=== PATIENT | female | born 1975 | race Caucasian/White ===

== ENCOUNTER 2021-10-16 14:33 | Emergency (ER) | payer OTHER, SELFPAY ==
--- NOTE | ~2021-10-16 | CT_ITS ---
EXAMINATION: CT brain wo con EXAM DATE: 10/16/2021 15:31 INDICATION: Worsening headache, vomiting. History of migraine headaches with photophobia. TECHNIQUE: Spiral CT of the head was performed without contrast. Axial, coronal and sagittal images were reviewed. The dose-length product (DLP) for this examination was 605.33 mGy-cm. The exposure w as tailored according to patient size, and iterative reconstruction (ASIR) was used as additional dos e reduction technique. There is no prior study for comparison. FINDINGS: There is no acute intraparenchymal hemorrhage. No evidence of intraparenchymal brain mass lesion. No evidence of acute infarction. There is no mass effect or midline shift. The ventricles are normal in size. There are no extra-axial collections. There are no acute calvarial fractures. T he orbits are unremarkable. Soft tissue is unremarkable. The visualized sinuses and mastoid air sathish ls are well aerated. IMPRESSION: 1. Unremarkable head CT examination. Reviewed, dictated and finalized at location [facility]. [facility]
[2021-10-16 14:39] VITALS: BP 127/84; PULSE 90; RESP 16; TEMP 35.5; O2SAT 100
--- NOTE | 2021-10-16 15:10 | ED.HA ---
HPI - Headache General Chief Complaint: Headache Stated Complaint: migraine [place] Time Seen by Provider: 10/16/21 14:59 Source: patient Mode of arrival: ambulatory Limitations: no limitations History of Present Illness HPI Narrative: This is a 46 year old female that presents to the ER for headache present since this morning. No injuries or trauma. Reports a pounding headache, associated with photophobia, nausea and vomiting. Does report history of migraines and took her rescue medication without relief. She sees a neurologist at the [facility] for her [facility]raines. She also reports she was having left sided flank pain last night that has somewhat resolved. Reports history of kidney stones. Denies fever, dysuria or hematuria. Related Data Allergies Allergy/AdvReac Type Severity Reaction Status Date / Time morphine AdvReac Hives Verified 10/16/21 16:05 Penicillins AdvReac Stopped Verified 10/16/21 16:05 Breathing Review of Systems Review of Systems: CONSTITUTIONAL: Denies fever EYES: Reports blurry vision GASTROINTESTINAL: Reports nausea, vomiting GENITOURINARY: Denies dysuria or hematuria. NEUROLOGIC: Reports headache. Denies numbness, or weakness. All systems reviewed & are unremarkable except as noted in HPI and below PMFSH Past Medical History Medical History (Updated 10/16/21 @ 17:27 by Kailey Cohen PA-C) History of migraine History of posttraumatic stress disorder (PTSD) Social History Social History (Updated 10/16/21 @ 15:14 by Kailey Cohen PA-C) Substance use: current Substance use type: marijuana Gender identity (if verbalized by the patient): Female Exam Narrative: GENERAL: Well-appearing, well-nourished, and in mild acute distress due to pain. HEAD: Normocephalic, atraumatic. EYES: PERRLA and EOMI. ENT: Nares clear, no rhinorrhea or epistaxis. Mucous membranes moist. Oropharynx without tonsillar hypertrophy exudate or other lesions. Bilateral TMs pearly reese non-bulging NECK: Supple. No adenopathy or masses. CHEST: Clear to auscultation. No respiratory distress. No wheezes rales or rhonchi HEART: Regular rate and rhythm. No murmur heard. Normal peripheral pulses. ABDOMEN: Soft, nontender, nondistended, normal active bowel sounds. No CVA tenderness EXTREMITIES: Normal range of motion. No edema. Strength equal in bilateral upper and lower extremities (5/5) SKIN: Warm, dry, no rash. NEURO: No focal deficits. Alert and oriented x3. CN II-XII grossly intact PSYCH: Normal mood and affect Course Vital Signs Vital signs: Vital Signs Temperature 96 F L 10/16/21 14:39 Pulse Rate 90 10/16/21 14:39 Respiratory Rate 16 10/16/21 14:39 Blood Pressure 127/84 10/16/21 14:39 Pulse Oximetry 100 10/16/21 14:39 Temperature 96 F L 10/16/21 14:39 Pulse Rate 90 10/16/21 14:39 Respiratory Rate 16 10/16/21 14:39 Blood Pressure 127/84 10/16/21 14:39 Pulse Oximetry 100 10/16/21 14:39 MDM - Headache MDM Narrative Medical decision making narrative: Patient presents to the emergency department for a migraine headache. History of migraines. Follows with a neurologist at the [facility]. She is afebrile and nontoxic-appearing. She is neurologically intact. CBC and metabolic panel without concerning findings. Patient was also reporting she was having some flank pain last night, associated with nausea and vomiting. Reports history of kidney stones. She did have 21-50 red blood cells in her urine and 10-15 white blood cells. No leukoesterase or nitrates. Patient denies any dysuria. This will be sent for culture. Her bedside test is negative. CT scan of the brain without acute findings. Patient refused CT scan of the abdomen and pelvis. She reports she feels better and would like to go home. She was instructed to have close follow-up with her neurologist and her urologist. She was given warnings to return to the ER Lab Data Attestation: I reviewed the patient's lab results. Resu
[2021-10-16 15:21] LABS: Basophils Absolute Auto 0.1 K/mm3 (0.0-0.1); Basophils Percent Auto 0.5 % (0.2-1.2); Eosinophils Absolute Auto 0.1 K/mm3 (0-0.3); Eosinophils Percent Auto 0.9 % (0-4.4); Hemoglobin 14.7 g/dL (12.0-15.0); Immature Granulocyte Absolute 0.03 K/mm3 (0.00-0.031); Immature Granulocyte Percent A 0.3 % (0-0.5); Lymphocytes Absolute Auto 2.35 K/mm3 (0.9-3.2); Mean Corpuscular HGB Conc 34.2 g/dl (32-36); Mean Corpuscular Hemoglobin 32.7 pg (26-34); Mean Corpuscular Volume 95.6 fl (80-100); Mean Platelet Volume 8.9 fl (7.4-10.4); Monocytes Absolute Auto 0.7 K/mm3 (0.1-0.6); Monocytes Percent Auto 7.7 % (2.6-8.5); Neutrophils Absolute Auto 6.2 K/mm3 (1.3-6.7); Neutrophils Percent Auto 65.6 % (45.5-73.1); Platelet Count Result 437 k/mm3 (150-375); Red Cell Distribution Width 11.5 % (11.5-14.5); White Blood Count 9.4 K/mm3 (4.5-10.0)
[2021-10-16 15:32] LABS: Alanine Aminotransferase 18 U/L (4-35); Albumin Level 4.7 g/dL (3.5-5.1); Alkaline Phosphatase 53 U/L (38-126); Anion Gap 10 mmol/L (8-16); Aspartate Amino Transferase 25 U/L (14-36); Bilirubin,Total 0.8 mg/dL (0.2-1.3); Blood Urea Nitrogen 15 mg/dL (7-17); Calcium 9.5 mg/dL (8.4-10.2); Carbon Dioxide 25 mmol/L (22-30); Chloride 104 mmol/L (98-107); Estimated CRCL calculation 66 ml/min; Estimated Glomerular Filt Rate > 60; Glucose 107 mg/dL (65-110); Lipase 140 U/L (23-300); Potassium 3.8 mmol/L (3.4-5.0); Sodium 139 mmol/L (137-145)
[2021-10-16] MEDS: METOCLOPRAMIDE HCL INJ 10 MG/2 ML VIAL IV PUSH (16:06)
[2021-10-16] MEDS: diphenhydrAMINE HCl INJ 50 MG/ML VIAL 25 MG IV PUSH (16:06)
[2021-10-16] MEDS: SODIUM CHLORIDE 0.9% IV 1,000 ML 999 ML IV CONT (16:06)
[2021-10-16 16:51] LABS: Add Urine Microscopic? YES; Appearance Urine Clear (Clear); Bilirubin Urine Negative (Negative); Blood Urine 3+ (Negative); Color Urine Yellow (Yellow); Glucose Urine UA Negative (Negative); Ketones Urine Negative (Negative); Leukocyte Esterase Ur Negative LEU/UL (Negative); Mucus Urine Rare /lpf; Nitrate Urine Negative (Negative); Protein Urine Negative (Negative); RBC Urine 21-50 /hpf (0-2); Specific Grav Ur 1.012 (1.001-1.035); Squamous Epithelial Cell Urine Occasional /hpf (Few); Urobilinogen Urine Negative mg/dL (<2.0)
[2021-10-16] MEDS: KETOROLAC 30 MG/ML VIAL (*BKC) IV PUSH (17:30)
== END 2021-10-17 01:56 | disposition home or self-care (01) ==
PROVIDERS: Physician Assistant; Emergency Provider Emergency Medicine
DX: G43.909 Migraine, unspecified, not intractable, without status migrainosus (principal); R10.9 Unspecified abdominal pain; Z87.442 Personal history of urinary calculi
CPT/HCPCS: 36415; 70450; 80053; 81001; 81025; 83690; 85025; 87086; 96365; 96375; 99284; J0131; J1200; J1885; J2765; J7030

== ENCOUNTER 2021-12-02 03:13 | Emergency (ER) | payer OTHER, SELFPAY ==
--- NOTE | ~2021-12-02 | CT_ITS ---
EXAMINATION: CT abdomen pelvis wo con DATE: 12/02/2021 05:04 INDICATION: Left lower quadrant abdominal pain for one month, worse the evening of the examination TECHNIQUE: Computed tomography (CT) of the abdomen and pelvis was performed without intravenous contr ast. Automated exposure control and iterative reconstruction technique were employed. Exam dose: 431 .50 mGy-cm total exam DLP. COMPARISON: None. FINDINGS: Bilateral breast implants are noted. The lung bases are clear of infiltrate or consolidatio n. Normal heart size. No pericardial or pleural effusion. Status post cholecystectomy. The liver, spleen, pancreas and bile ducts and pancreatic duct are unrem arkable. Normal morphology of the adrenal glands. There are couple of small approximately 2 mm nonobstructing right renal calculi. There are 2 left bala al calculi measuring up to 4 mm. There are 2 distal left ureteral calculi measuring up to approximately 2.4 x 4 mm and 3.7 x 5 mm dime nsion, with moderate proximal left hydroureteronephrosis. The urinary bladder is unremarkable. Status post hysterectomy. Normal caliber of the abdominal aorta. No intraperitoneal or retroperitoneal or pelvic mass lesion or adenopathy or ascites. There is nonspecific thickening of the wall of the descending colon. No bowel obstruction or intraper itoneal free air. Severe degenerative disc disease at L5-S1. IMPRESSION: 2 distal left ureteral calculi with moderately prominent proximal right hydroureteroneph rosis Bilateral nephrolithiasis Status post cholecystectomy Status post hysterectomy Status post bilateral augmentation mammoplasty Reviewed, dictated and finalized at [facility]. Reviewed, dictated and finalized at [facility]. ER FLOATER IMPRESSION: 2 distal left ureteral calculi with moderately prominent proximal right hydroureteronephrosis Bilateral nephrolithiasis Status post cholecystectomy Status post hysterectomy Status post bilateral augmentation mammoplasty
[2021-12-02 03:16] VITALS: BP 128/80; PULSE 78; RESP 19; TEMP 36.3; O2SAT 100
[2021-12-02 03:50] LABS: Basophils Absolute Auto 0.1 K/mm3 (0.0-0.1); Basophils Percent Auto 0.3 % (0.2-1.2); Eosinophils Percent Auto 0.2 % (0-4.4); Hematocrit 35.1 % (37.0-47.0); Hemoglobin 12.1 g/dL (12.0-15.0); Immature Granulocyte Absolute 0.07 K/mm3 (0.00-0.031); Immature Granulocyte Percent A 0.4 % (0-0.5); Lymphocytes Percent Auto 9.3 % (18.3-44.2); Mean Corpuscular HGB Conc 34.5 g/dl (32-36); Mean Corpuscular Hemoglobin 33.6 pg (26-34); Mean Corpuscular Volume 97.5 fl (80-100); Mean Platelet Volume 9.2 fl (7.4-10.4); Monocytes Absolute Auto 0.8 K/mm3 (0.1-0.6); Monocytes Percent Auto 5.1 % (2.6-8.5); Neutrophils Absolute Auto 13.6 K/mm3 (1.3-6.7); Neutrophils Percent Auto 84.7 % (45.5-73.1); Platelet Count Result 313 k/mm3 (150-375); Red Cell Distribution Width 12.4 % (11.5-14.5); White Blood Count 16.1 K/mm3 (4.5-10.0)
[2021-12-02] MEDS: SODIUM CHLORIDE 0.9% IV 1,000 ML 999 ML IV CONT (03:50)
[2021-12-02] MEDS: ONDANSETRON INJ 4 MG/2 ML VIAL IV PUSH (03:51)
[2021-12-02] MEDS: KETOROLAC 30 MG/ML VIAL (*BKC) IV PUSH (03:53)
[2021-12-02 04:36] LABS: Add Urine Microscopic? YES; Appearance Urine Clear (Clear); Bacteria Urine Trace /hpf; Bilirubin Urine Negative (Negative); Blood Urine 3+ (Negative); Color Urine Yellow (Yellow); Glucose Urine UA Negative (Negative); Ketones Urine Negative (Negative); Leukocyte Esterase Ur Negative LEU/UL (Negative); Mucus Urine Rare /lpf; Nitrate Urine Negative (Negative); Protein Urine Negative (Negative); RBC Urine 21-50 /hpf (0-2); Specific Grav Ur 1.011 (1.001-1.035); Squamous Epithelial Cell Urine Rare /hpf (Few); Urobilinogen Urine Negative mg/dL (<2.0)
[2021-12-02 04:44] LABS: Alanine Aminotransferase 17 U/L (4-35); Albumin Level 3.8 g/dL (3.5-5.1); Alkaline Phosphatase 54 U/L (38-126); Anion Gap 8 mmol/L (8-16); Aspartate Amino Transferase 30 U/L (14-36); Bilirubin,Total 0.5 mg/dL (0.2-1.3); Blood Urea Nitrogen 17 mg/dL (7-17); Calcium 7.9 mg/dL (8.4-10.2); Carbon Dioxide 22 mmol/L (22-30); Chloride 107 mmol/L (98-107); Estimated CRCL calculation 66 ml/min; Estimated Glomerular Filt Rate > 60; Glucose 108 mg/dL (65-110); Lipase 129 U/L (23-300); Potassium 3.6 mmol/L (3.4-5.0); Sodium 137 mmol/L (137-145)
--- NOTE | 2021-12-02 06:01 | ED.GENADULT ---
HPI - General Adult General Chief complaint: Abdominal Pain Stated complaint: abd pain llq to left leg Time Seen by Provider: 12/02/21 03:18 History of Present Illness HPI narrative: Patient is a 46-year-old female who presents ER with left-sided abdominal pain. Sudden onset prior to arrival. Mild nausea but no vomiting. Feels like previous kidney stones. Patient feels like she cannot urinate. No hematuria or dysuria. No fevers chills or sweats. Pain does radiate to back. She typically sees the [facility] urologist. She is scheduled for follow-up in 2 weeks. Related Data Allergies Allergy/AdvReac Type Severity Reaction Status Date / Time iohexol Allergy Unknown Verified 12/02/21 04:53 [From contrast - CT, X-RAY] morphine AdvReac Hives Verified 10/16/21 16:05 Penicillins AdvReac Stopped Verified 10/16/21 16:05 Breathing Review of Systems Review of Systems: All systems reviewed & are unremarkable except as noted in HPI and below Constitutional: Constitutional: Denies chills, Denies fever(s) and Denies weakness ENT: Denies nasal congestion and Denies sore throat Gastrointestinal: Gastrointestinal: Reports abdominal pain, Denies diarrhea, Reports nausea and Denies vomiting Genitourinary: Genitourinary: Denies hematuria, Denies dysuria, Reports flank pain and Denies urinary incontinence Musculoskeletal: Musculoskeletal: Reports back pain and Denies muscle cramps Neurologic: Denies focal weakness and Denies numbness PMFSH Past Medical History Medical History (Updated 12/02/21 @ 06:07 by Asaf Hoskins MD) History of migraine History of posttraumatic stress disorder (PTSD) Kidney stones Surgical History Surgical History (Updated 12/02/21 @ 06:07 by Asaf Hoskins MD) No pertinent past surgical history Social History Social History (Updated 10/16/21 @ 15:14 by Kailey Cohen PA-C) Substance use: current Substance use type: marijuana Gender identity (if verbalized by the patient): Female Exam Narrative: GENERAL: Uncomfortable-appearing, well-nourished, and in no acute distress. HEAD: Normocephalic, atraumatic. NECK: Supple. CHEST: Clear to auscultation. No respiratory distress. HEART: Regular rate and rhythm. Normal peripheral pulses. ABDOMEN: Soft, nontender, nondistended. CVA tenderness bilaterally. EXTREMITIES: Normal range of motion. No edema. SKIN: Warm, dry, no rash. NEURO: Alert and oriented x3. PSYCH: Normal mood and affect. Course Course Emergency Course: And resolved with Toradol. Patient hydrated. Discussed results. Urine not felt to be infected as there is no bacteria and patient has not having any symptoms. It will be sent for culture. Supportive care recommended for home patient verbalized understanding. Vital Signs Vital signs: Vital Signs Temperature 97.4 F L 12/02/21 03:16 Pulse Rate 78 12/02/21 03:16 Respiratory Rate 19 12/02/21 03:16 Blood Pressure 128/80 12/02/21 03:16 Pulse Oximetry 100 12/02/21 03:16 Temperature 97.4 F L 12/02/21 03:16 Pulse Rate 78 12/02/21 03:16 Respiratory Rate 19 12/02/21 03:16 Blood Pressure 128/80 12/02/21 03:16 Pulse Oximetry 100 12/02/21 03:16 Medical Decision Making Vital Signs Vital Signs: Vital Signs Temperature 97.4 F L 12/02/21 03:16 Pulse Rate 78 12/02/21 03:16 Respiratory Rate 19 12/02/21 03:16 Blood Pressure 128/80 12/02/21 03:16 Pulse Oximetry 100 12/02/21 03:16 Temperature 97.4 F L 12/02/21 03:16 Pulse Rate 78 12/02/21 03:16 Respiratory Rate 19 12/02/21 03:16 Blood Pressure 128/80 12/02/21 03:16 Pulse Oximetry 100 12/02/21 03:16 Lab Data Result diagrams: 12/02/21 03:28 12/02/21 04:22 Labs: Lab Results 12/02/21 12/02/21 12/02/21 Range/Units 03:28 04:22 04:22 WBC 16.1 H (4.5-10.0) K/mm3 RBC 3.60 L (4.2-5.4) M/mm3 Hgb 12.1 (12.0-15.0) g/dL Hct 35.1 L (37.0-47.0)
[2021-12-02 06:16] VITALS: BP 112/75; PULSE 89; RESP 18; TEMP 36.9; O2SAT 98
== END 2021-12-02 06:18 | disposition home or self-care (01) ==
PROVIDERS: Emergency Provider Emergency Medicine
DX: N13.2 Hydronephrosis with renal and ureteral calculous obstruction (principal); Z87.442 Personal history of urinary calculi
CPT/HCPCS: 36415; 74176; 80053; 81001; 81025; 83690; 85025; 87086; 87088; 96361; 96374; 96375; 99284; J1885; J2405; J7030

== ENCOUNTER 2022-02-03 21:05 | Emergency (ER) | payer OTHER, SELFPAY ==
[2022-02-03] VITALS (17 sets, daily range): BP systolic 109–143; BP diastolic 66–87; PULSE 73–98; RESP 12–24; TEMP 36.8; O2SAT 95–100
--- NOTE | ~2022-02-03 | XR_ITS ---
EXAMINATION: XR chest 1V portable DATE: 02/03/2022 21:50 INDICATION: Fever and cough. COVID-19 positive. TECHNIQUE: A single frontal view of the chest was obtained. COMPARISON: CT abdomen and pelvis 12/02/2021 FINDINGS: The chest demonstrates clear lungs without pneumonia, pleural effusion, or pneumothorax. Th e heart size is normal. IMPRESSION: 1. No acute cardiopulmonary disease. Reviewed, dictated and finalized at location [facility].
--- NOTE | ~2022-02-03 | CT_ITS ---
EXAMINATION: CT brain wo con DATE: 02/03/2022 22:54 INDICATION: Altered mental status. TECHNIQUE: Computed tomography (CT) of the head was performed without intravenous contrast. The mA wa s adjusted according to patient size. Iterative reconstruction technique was employed. The dose-lengt h product was 529.67 mGy-cm. COMPARISON: Head CT 10/16/2021 FINDINGS: There is no intracranial hemorrhage, acute infarction, or abnormal intracranial mass lesion . The ventricles are normal in size. The orbits are normal. The paranasal sinuses are clear. The mast oid air cells are normal. There is right frontal scalp soft tissue swelling. IMPRESSION: 1. Normal brain. Reviewed, dictated and finalized at location [facility]. IMPRESSION: 1. Normal brain.
--- NOTE | 2022-02-03 22:37 | ED.URI ---
HPI - URI/Sore Throat General Chief Complaint: Upper Respiratory Infection Stated Complaint: COVID+ MULTIPLE C/O Time Seen by Provider: 02/03/22 21:37 Source: patient Mode of arrival: ambulatory Limitations: no limitations History of Present Illness HPI Narrative: This is a 46 year old female that presents to the ER for cold symptoms present today. Reports cough, congestion, sore throat, chills and headache. Reports her brain feels foggy . She had a positive home COVID test today. Her son recently had COVID. She is vaccinated, but did not get the booster. Denies vision changes, vomiting, numbness, or weakness. Related Data Allergies Allergy/AdvReac Type Severity Reaction Status Date / Time iohexol Allergy Unknown Verified 02/03/22 21:29 [From contrast - CT, X-RAY] morphine AdvReac Hives Verified 02/03/22 21:29 Penicillins AdvReac Stopped Verified 02/03/22 21:29 Breathing Review of Systems Review of Systems: CONSTITUTIONAL: Denies fever EYES: Denies visual changes ENT: Reports congestion, sore throat RESPIRATORY: Reports cough. Denies dyspnea. NEUROLOGIC: Reports headache. Denies numbness, or weakness. PSYCHIATRIC: Reports depression. All systems reviewed & are unremarkable except as noted in HPI and below PMFSH Past Medical History Medical History (Updated 02/04/22 @ 00:04 by Kailey Cohen PA-C) History of migraine History of posttraumatic stress disorder (PTSD) Kidney stones Surgical History Surgical History (Updated 12/02/21 @ 06:07 by Asaf Hoskins MD) No pertinent past surgical history Social History Social History (Updated 10/16/21 @ 15:14 by Kailey Cohen PA-C) Substance use: current Substance use type: marijuana Gender identity (if verbalized by the patient): Female Exam Narrative: GENERAL: Well-appearing, well-nourished, and in no acute distress. HEAD: Normocephalic, atraumatic. EYES: PERRLA and EOMI. ENT: Nares clear, no rhinorrhea or epistaxis. Mucous membranes moist. Oropharynx without tonsillar hypertrophy exudate or other lesions. Bilateral TMs pearly reese non-bulging NECK: Supple. No adenopathy or masses. CHEST: Clear to auscultation. No respiratory distress. No wheezes rales or rhonchi HEART: Regular rate and rhythm. No murmur heard. Normal peripheral pulses. EXTREMITIES: Normal range of motion. No edema. SKIN: Warm, dry, no rash. NEURO: No focal deficits. Alert and oriented x3. Cranial nerves II through XII grossly intact PSYCH: Normal mood and affect Course Vital Signs Vital signs: Vital Signs Temperature 98.3 F 02/03/22 21:10 Pulse Rate 88 02/03/22 21:10 Respiratory Rate 18 02/03/22 21:10 Blood Pressure 127/74 02/03/22 21:10 Pulse Oximetry 98 02/03/22 21:10 Temperature 98.3 F 02/03/22 21:10 Pulse Rate 74 02/03/22 23:47 Respiratory Rate 12 02/03/22 23:47 Blood Pressure 120/75 02/03/22 23:47 Pulse Oximetry 100 02/03/22 23:47 MDM - URI/Sore Throat MDM Narrative Medical decision making narrative: Patient presents to the emergency department for cold symptoms present today. She is afebrile and nontoxic-appearing. She is neurologically intact. Oxygen saturation has remained normal on room air. CBC and metabolic panel without concerning findings. CRP and lactic are not elevated. Bedside test is negative. Influenza screen is negative. COVID screen is positive. Chest x-ray without acute cardiopulmonary abnormality. CT scan of the brain is normal. Patient was updated on case findings. Patient reports feeling like she is in a fog and confused. Once again on my exam she is neurologically intact. Her vitals are normal. No concerning findings on blood workup or CT scan of the brain. Paxlovid will be prescribed. She was offered admission for further evaluation of her symptoms. She declines at this time. Instructed to have close follow-up with her primary doctor. She was given warnings to return to the ER [facility]
[2022-02-03] MEDS: SODIUM CHLORIDE 0.9% IV 1,000 ML 999 ML IV CONT (22:48)
[2022-02-03 22:51] LABS: Basophils Percent Auto 0.5 % (0.2-1.2); Eosinophils Absolute Auto 0.1 K/mm3 (0-0.3); Eosinophils Percent Auto 0.8 % (0-4.4); Hematocrit 40.4 % (37.0-47.0); Hemoglobin 13.3 g/dL (12.0-15.0); Immature Granulocyte Absolute 0.03 K/mm3 (0.00-0.031); Immature Granulocyte Percent A 0.5 % (0-0.5); Lymphocytes Absolute Auto 0.85 K/mm3 (0.9-3.2); Lymphocytes Percent Auto 13.2 % (18.3-44.2); Mean Corpuscular HGB Conc 32.9 g/dl (32-36); Mean Corpuscular Hemoglobin 32.8 pg (26-34); Mean Corpuscular Volume 99.5 fl (80-100); Mean Platelet Volume 8.6 fl (7.4-10.4); Monocytes Absolute Auto 1.1 K/mm3 (0.1-0.6); Monocytes Percent Auto 17.3 % (2.6-8.5); Neutrophils Absolute Auto 4.4 K/mm3 (1.3-6.7); Neutrophils Percent Auto 67.7 % (45.5-73.1); Platelet Count Result 338 k/mm3 (150-375); Red Blood Count 4.06 M/mm3 (4.2-5.4); Red Cell Distribution Width 11.9 % (11.5-14.5); White Blood Count 6.4 K/mm3 (4.5-10.0)
[2022-02-03 23:01] LABS: Lactic Acid Reflex 0.7 mmol/L (0.7-2.0)
[2022-02-03 23:06] LABS: INR 1.1; Prothrombin Time 13.7 Seconds (11.1-14.7)
[2022-02-03 23:07] LABS: CRP 0.8 mg/dL (<1.0)
[2022-02-03 23:27] LABS: Influenza A QL RT-PCR Negative (Negative); Influenza B QL RT-PCR Negative (Negative); SARS-CoV-2 RNA PCR Positive
[2022-02-03 23:28] LABS: Alanine Aminotransferase 18 U/L (4-35); Albumin Level 3.8 g/dL (3.5-5.1); Alkaline Phosphatase 49 U/L (38-126); Anion Gap 6 mmol/L (8-16); Aspartate Amino Transferase 32 U/L (14-36); Bilirubin,Total 0.5 mg/dL (0.2-1.3); Blood Urea Nitrogen 11 mg/dL (7-17); Calcium 8.4 mg/dL (8.4-10.2); Carbon Dioxide 23 mmol/L (22-30); Chloride 106 mmol/L (98-107); Estimated CRCL calculation 66 ml/min; Estimated Glomerular Filt Rate > 60; Glucose 86 mg/dL (65-110); Potassium 3.9 mmol/L (3.4-5.0); Sodium 135 mmol/L (137-145)
[2022-02-04] VITALS: BP 120/80; PULSE 82; RESP 14; O2SAT 100
[2022-02-04 00:15] VITALS: PULSE 79; RESP 12; O2SAT 99
== END 2022-02-04 00:25 | disposition home or self-care (01) ==
PROVIDERS: Physician Assistant; Emergency Provider Emergency Medicine
DX: U07.1 COVID-19 (principal); Z87.442 Personal history of urinary calculi
CPT/HCPCS: 36415; 70450; 71045; 80053; 81025; 83605; 85025; 85610; 85730; 86140; 87502; 96365; 99284; C9803; J0131; J7030; U0003; U0005

== ENCOUNTER 2022-05-27 11:18 | Emergency (ER) | payer OTHER, SELFPAY ==
--- NOTE | ~2022-05-27 | CT_ITS ---
EXAMINATION: CT pelvis wo con DATE: 05/27/2022 13:30 INDICATION: Pelvic pain TECHNIQUE: Computed tomography (CT) of the pelvis was performed without intravenous contrast. The dos e-length product (DLP) was 476.75 mGy-cm. Automated exposure control and iterative reconstruction shasha hnique were employed. COMPARISON: None FINDINGS: There is no free intraperitoneal gas or evidence of bowel obstruction. There are no patholo gically enlarged pelvic lymph nodes. Changes of hysterectomy are noted. The appendix is normal. There is severe lumbar spondylosis at L5-S1. IMPRESSION: 1. No CT correlate for the patient's symptoms. Reviewed, dictated and finalized at location [facility].
--- NOTE | ~2022-05-27 | CT_ITS ---
EXAMINATION: CT lumbar spine wo con DATE: 05/27/2022 13:30 INDICATION: Low back pain TECHNIQUE: Computed tomography (CT) of the lumbar spine was performed without intravenous contrast. T he dose-length product (DLP) was 362.78 mGy-cm. Iterative reconstruction was used. COMPARISON: CT, 12/02/2021 FINDINGS: There is severe loss of intervertebral disc space height at L5-S1. Bone alignment is normal . There is no fracture. The vertebral body heights are maintained. There is moderate facet osteoarthr itis at L5-S1. Nonobstructing stones are noted in the kidneys. IMPRESSION: 1. Unchanged severe lumbar spondylosis at L5-S1 without acute findings. Reviewed, dictated and finalized at location A.
[2022-05-27 11:20] VITALS: BP 119/70; PULSE 64; RESP 20; TEMP 36.6; O2SAT 99
--- NOTE | 2022-05-27 12:04 | PC.NURSE ---
Patient states she is having her ride pick her up and take her somewhere else. Patient refusing wheelchair for assistance while in waiting room. Patient aware she can always return to ED to be seen.
--- NOTE | 2022-05-27 12:19 | PC.NURSE ---
Patient attempted to ambulate out of ED, was offered a Jael Stedy and was able to sit. Patient reports I just don't know what to do but decided to be seen in ER. Patient reported that it was getting hard to keep herself up and a wheelchair was too low to sit in. Patient taken to ED room with Jael Kingsley.
--- NOTE | 2022-05-27 12:45 | ED.GENADULT ---
HPI - General Adult General Chief complaint: Fall Stated complaint: fall Time Seen by Provider: 05/27/22 12:24 History of Present Illness HPI narrative: 46-year-old female with history of discectomy surgery presented to the emergency department for evaluation of low back pain after a fall down some stairs 2 days ago. Patient states she fell down 3-12 stairs a few days ago. Patient reports lower back pain that does radiate to her left pelvis. Patient states that she has been having diarrhea. Patient reports she is able to control her bladder. Patient denies any numbness or weakness but does have radiating pain. Patient states the pain radiates from her lumbar spine to her left hip and into her left groin. Related Data Allergies Allergy/AdvReac Type Severity Reaction Status Date / Time iohexol Allergy Unknown Verified 02/03/22 21:29 [From contrast - CT, X-RAY] morphine AdvReac Hives Verified 02/03/22 21:29 Penicillins AdvReac Stopped Verified 02/03/22 21:29 Breathing Review of Systems Review of Systems: CONSTITUTIONAL: Denies fever, chills, or sweats. EYES: Denies visual changes, redness, or discharge. ENT: Denies rhinorrhea, congestion, sore throat, or otalgia. CARDIOVASCULAR: Denies chest pain, palpitations, or edema. RESPIRATORY: Denies cough or dyspnea. GASTROINTESTINAL: Denies abdominal pain, nausea, vomiting, or diarrhea. GENITOURINARY: Denies dysuria or hematuria. SKIN: Denies rash or itching. MUSCULOSKELETAL: See HPI NEUROLOGIC: Denies headache, numbness, or weakness. [facility] Past Medical History Medical History (Updated 05/27/22 @ 15:45 by Alejandro Bryan MD) History of migraine History of posttraumatic stress disorder (PTSD) Kidney stones Surgical History Surgical History (Updated 12/02/21 @ 06:07 by Asaf Hoskins MD) No pertinent past surgical history Social History Social History (Updated 10/16/21 @ 15:14 by Kailey Cohen PA-C) Substance use: current Substance use type: marijuana Gender identity (if verbalized by the patient): Female Exam Narrative: APPEARANCE: Well appearing, no pain, no distress, well-nourished. HEAD: normocephalic, atraumatic. EYES: PERRLA/EOMI, conjunctivae clear. NOSE: Normal no drainage THROAT: Pharynx clear, no exudate. NECK: Supple. No adenopathy, no masses. RESPIRATORY: Airway patent, respirations nonlabored. Clear to auscultation bilaterally, no rales, rhonchi, wheezing. CARDIOVASCULAR: Regular rate and rhythm without murmurs rubs or gallops. ABDOMINAL: Soft, nontender, nondistended, normal bowel sounds MUSCULOSKELETAL: Moves all extremities. Lumbar tenderness to palpation. Pelvic tenderness to palpation. NEURO: Alert. Cranial nerves II through XII intact. Grossly intact SKIN: Warm, dry. Normal Color PSYCHIATRIC: Normal affect/mood. Course Course Emergency Course: CTs were negative for acute finding. Patient declined a digital rectal exam to evaluate rectal tone. Patient states that she is able to urinate and has had no loss of bowel control. Patient states she does have to push hard for urinating but states that this may be due to the associated pain with urinating. Patient states she did have some weakness of her left leg but states this was also secondary to pain. Patient was educated extensively on reasons to return to the emergency room. All question concerns were addressed. Patient was well-appearing at time of discharge. Vital Signs Vital signs: Vital Signs Temperature 97.9 F 05/27/22 11:20 Pulse Rate 64 05/27/22 11:20 Respiratory Rate 20 05/27/22 11:20 Blood Pressure 119/70 05/27/22 11:20 Pulse Oximetry 99 05/27/22 11:20 Oxygen Delivery Room Air 05/27/22 11:20 Temperature 97.9 F 05/27/22 11:20 Pulse Rate 80 05/27/22 15:50 Respiratory Rate 16 05/27/22 15:50 Blood Pressure 142/86 H 05/27/22 15:50 Pulse Oximetry 98 05/27/22 15:50 Oxygen Delivery Room Air 05/27/22 11:20 Medi
[2022-05-27] MEDS: CYCLOBENZAPRINE HCL 10 MG TABLET PO (13:09)
[2022-05-27] MEDS: HYDROmorphone HCL INJ (*CRX) 1 MG/ML SYR IV PUSH (13:10)
[2022-05-27] MEDS: ONDANSETRON INJ 4 MG/2 ML VIAL (13:10)
[2022-05-27] MEDS: diphenhydrAMINE HCl INJ 50 MG/ML VIAL 25 MG IV PUSH (14:46)
[2022-05-27 15:50] VITALS: BP 142/86; PULSE 80; RESP 16; O2SAT 98
== END 2022-05-27 16:10 | disposition home or self-care (01) ==
PROVIDERS: Emergency Provider Emergency Medicine
DX: S39.92XA Unspecified injury of lower back, initial encounter (principal); Z87.442 Personal history of urinary calculi; M47.816 Spondylosis without myelopathy or radiculopathy, lumbar region; W10.9XXA Fall (on) (from) unspecified stairs and steps, initial encounter
CPT/HCPCS: 72131; 72192; 96374; 96375; 99284; A9270; J1170; J1200; J2405

== ENCOUNTER 2023-07-20 06:52 | Observation (INO) | payer OTHER, SELFPAY ==
[2023-07-20] VITALS (23 sets, daily range): BP systolic 91–122; BP diastolic 54–79; PULSE 73–97; RESP 12–28; TEMP 35.8–36.6; O2SAT 96–100; BMI 23.0
--- NOTE | ~2023-07-20 | MR_ITS ---
EXAMINATION: MR brain/brain stem wo con DATE: 07/21/2023 07:14 INDICATION: possible seizure/tia TECHNIQUE: Magnetic resonance imaging (MRI) of the brain and brainstem was performed without intraven ous contrast. Sequences included sagittal and axial T1-weighted SE, axial diffusion-weighted FS EPI A SSET, axial T2*-weighted GRE, axial T2-weighted FLAIR Propeller, and axial T2-weighted Propeller. Pos tcontrast axial and coronal T1-weighted SE was obtained. Apparent diffusion coefficient (ADC) maps we re created. COMPARISON: CT brain 07/20/2023. FINDINGS: No abnormal restricted diffusion to suggest acute ischemic infarct. No MRI evidence of hemorrhage or extra-axial collection. No suspicious foci of susceptibility to suggest prior intraparenchymal hemorr yolande. Mild nonspecific focal white matter hyperintensities in the subcortical white matter of the tiago ateral parietal lobes and right insular white matter. No evidence of advanced or lobar predominant pa renchymal volume loss. The basilar cisterns are patent. Flow voids are preserved. Paranasal sinuses a re within normal limits. Trace bilateral mastoid fluid. Globes and orbital contents are within normal limits. IMPRESSION: Minimal focal nonspecific white matter change in the bilateral parietal lobes and right insular white matter. This may represent early chronic small vessel disease, although other considerations such as demyelinating disease, vasculitis, or reactive astrocytosis (gliosis), etc., could be considered in the differential. Reviewed, dictated and finalized at location K. IMPRESSION: Minimal focal nonspecific white matter change in the bilateral parietal lobes a nd right insular white matter. This may represent early chronic small vessel di sease, although other considerations such as demyelinating disease, vasculitis, or reactive astrocytosis (gliosis), etc., could be considered in the different ial.
--- NOTE | ~2023-07-20 | CT_ITS ---
Non-contrast Head CT History: Altered mental status COMPARISON: 02/03/2022 Technique: Axial non-contrast imaging of the brain was performed. Dose reduction technique was used on this scan by utilizing automated exposure control and iterative reconstruction technique. The dose -length product (DLP) was 605.33 mGy-cm. Findings: There is no evidence of intracranial hemorrhage, mass lesion, or acute infarct. Brain par enchyma appears normal. The ventricles and subarachnoid spaces are normal in size. The calvarium ap pears normal. The visualized paranasal sinuses and mastoid air cells are clear. Impression: No significant abnormality seen. Reviewed, dictated and finalized at location . Impression: No significant abnormality seen.
--- NOTE | 2023-07-20 06:58 | ECG_ITS ---
Measurements Intervals [place] Rate: 90 P: 61 IN: 135 QRS: 48 QRSD: 90 T: 46 QT: 368 QTc: 452 Interpretive Statements SINUS RHYTHM POSSIBLE RIGHT VENTRICULAR CONDUCTION DELAY [RSR (QR) IN V1/V2] NONSPECIFIC T-WAVE ABNORMALITY BORDERLINE ECG NO PREVIOUS ECG AVAILABLE FOR COMPARISON Electronically Signed On 07-21-2023 8:44:26 CDT by Jn Christy M.D.
[2023-07-20 07:25] LABS: Basophils Absolute Auto 0.1 K/mm3 (0.0-0.1); Basophils Percent Auto 0.7 % (0.2-1.2); Eosinophils Absolute Auto 0.1 K/mm3 (0-0.3); Eosinophils Percent Auto 1.8 % (0-4.4); Hematocrit 40.3 % (37.0-47.0); Hemoglobin 13.4 g/dL (12.0-15.0); Immature Granulocyte Absolute 0.02 K/mm3 (0.00-0.031); Immature Granulocyte Percent A 0.3 % (0-0.5); Lymphocytes Absolute Auto 1.96 K/mm3 (0.9-3.2); Lymphocytes Percent Auto 29.2 % (18.3-44.2); Mean Corpuscular HGB Conc 33.3 g/dl (32-36); Mean Corpuscular Hemoglobin 32.8 pg (26-34); Mean Corpuscular Volume 98.5 fl (80-100); Mean Platelet Volume 9.3 fl (7.4-10.4); Monocytes Absolute Auto 0.6 K/mm3 (0.1-0.6); Monocytes Percent Auto 9.1 % (2.6-8.5); Neutrophils Percent Auto 58.9 % (45.5-73.1); Platelet Count Result 404 k/mm3 (150-375); Red Blood Count 4.09 M/mm3 (4.2-5.4); Red Cell Distribution Width 12.1 % (11.5-14.5); White Blood Count 6.7 K/mm3 (4.5-10.0)
--- NOTE | 2023-07-20 07:27 | ED.GENADULT ---
HPI - General Adult General Chief complaint: Unspecified Stated complaint: seizure, r sided weakness Time Seen by Provider: 07/20/23 06:55 History of Present Illness HPI narrative: 48-year-old female presented the emergency department for evaluation of possible seizure and right-sided weakness. Patient states she does have a history of TBI but has no prior history of seizure. Patient attributes her TBI to multiple parachute jumps. Patient denies any specific incident of injury resulting in TBI. Patient states that when she woke up this morning she felt a numbness wash over her and fell from bed. Patient states afterwards she was having difficulty moving her right arm and leg. Related Data Home Medications Medication Instructions Recorded Confirmed bupropion HCl 150 mg 24 hr tablet, 450 mg PO HS 07/20/23 07/20/23 extended release calcium carb-vit D3-minerals 600 1 tablet PO DAILY 07/20/23 07/20/23 mg calcium-400 unit tablet dicyclomine 10 mg capsule 10 mg PO BID PRN Spasms 07/20/23 07/20/23 hydroxyzine HCl 50 mg tablet 50 mg PO PRN PRN itching, nausea, 07/20/23 07/20/23 anxiety hyoscyamine sulfate 0.125 mg 0.125 mg sublingual PRN PRN Spasms 07/20/23 07/20/23 sublingual tablet (Oscimin SL) omega 3-dha 120 mg-epa 180 mg-fish 1 cap PO DAILY 07/20/23 07/20/23 oil 600 mg capsule (Extreme [place]-3) rizatriptan 10 mg tablet (Maxalt) 10 mg PO PRN PRN Migraine Headache 07/20/23 07/20/23 vitamin B complex 1 tablet PO DAILY 07/20/23 07/20/23 vitamin E 268 mg (400 unit) capsule 268 mg PO DAILY 07/20/23 07/20/23 zaleplon 10 mg capsule 10 mg PO HS PRN Insomnia 07/20/23 07/20/23 Allergies Allergy/AdvReac Type Severity Reaction Status Date / Time iohexol Allergy Hives Verified 07/20/23 07:32 [From contrast - CT, X-RAY] morphine AdvReac Hives Verified 07/20/23 07:32 Penicillins AdvReac Stopped Verified 07/20/23 07:32 Breathing Review of Systems Review of Systems: All systems reviewed & are unremarkable except as noted in HPI and below PMFSH Past Medical History Medical History (Updated 07/20/23 @ 18:28 by Alejandro Bryan MD) History of migraine History of posttraumatic stress disorder (PTSD) Kidney stones Surgical History Surgical History (Updated 12/02/21 @ 06:07 by Asaf Hoskins MD) No pertinent past surgical history Social History Social History (Updated 06/29/22 @ 10:34 by Fabiola Stack) Smoking status: Never smoker Alcohol intake: never Substance use: current Substance use type: marijuana Other substance usage details: cream used on back Last use: 06/20/23 Lack of Transportation: No Lack of Food: Never True Current Housing: I Have Housing Concerned About Future Housing: No Difficulty Paying Gas/Electric Bills: No Difficulty Paying for Meds: No Currently Unemployed: No Education: Master's Degree or Higher Difficulty w/ Childcare or Family Care: No Gender identity (if verbalized by the patient): Female Spiritual care concerns: Yes (DOES NOT EAT PORK) Exam Narrative: APPEARANCE: Well appearing, no pain, no distress, well-nourished. HEAD: normocephalic, atraumatic. EYES: PERRLA/EOMI, conjunctivae clear. NOSE: Normal no drainage EARS:TMS clear with good light reflex. THROAT: Pharynx clear, no exudate. NECK: Supple. No adenopathy, no masses. RESPIRATORY: Airway patent, respirations nonlabored. Clear to auscultation bilaterally, no rales, rhonchi, wheezing. CARDIOVASCULAR: Regular rate and rhythm without murmurs rubs or gallops. ABDOMINAL: Soft, nontender, nondistended, normal bowel sounds MUSCULOSKELETAL: Moves all extremities. Strength/ROM intact, No edema, No calf tenderness. NEURO: Alert. Cranial nerves II through XII intact. Decreased movement of the right upper and lower extremity upon arrival to the ED SKIN: Warm, dry. Normal Color PSYCHIATRIC: Tearful affect Course Course Emergency Course: 48-year-old female with history o
[2023-07-20 07:34] LABS: Lactic Acid Reflex 0.7 mmol/L (0.7-2.0)
[2023-07-20 07:48] LABS: Estimated CRCL calculation 53 ml/min; Estimated Glomerular Filt Rate 53
[2023-07-20 08:05] LABS: INR 0.9; Prothrombin Time 12.9 Seconds (11.1-14.7)
[2023-07-20 08:06] LABS: Partial Thromboplastin Time 22.2 SECONDS (22.3-36.8)
[2023-07-20 08:10] LABS: Alanine Aminotransferase 17 U/L (6-35); Alkaline Phosphatase 43 U/L (38-126); Anion Gap 4 mmol/L (8-16); Aspartate Amino Transferase 23 U/L (14-36); Bilirubin,Total 0.7 mg/dL (0.2-1.3); Blood Urea Nitrogen 17 mg/dL (7-17); Calcium 8.3 mg/dL (8.4-10.2); Carbon Dioxide 27 mmol/L (22-30); Chloride 105 mmol/L (98-107); Estimated CRCL calculation 64 ml/min; Estimated Glomerular Filt Rate > 60; Glucose 86 mg/dL (65-110); Potassium 3.8 mmol/L (3.4-5.0); Sodium 136 mmol/L (137-145)
--- NOTE | 2023-07-20 09:12 | PC.NURSE ---
pt ambulated to the bathroom with 1 person assist.
[2023-07-20 09:13] LABS: Amphetamine Screen Urine Negative (Negative); Barbiturate Screen Urine Negative (Negative); Benzodiazepines Screen Urine Negative (Negative); Cannabinoid Screen Urine Negative (Negative); Cocaine Screen Urine Negative (Negative); Methadone Screen Urine Negative (Negative); Opiate Screen Urine Negative (Negative); Phencyclidine Screen Urine Negative (Negative)
[2023-07-20 09:19] LABS: Appearance Urine Clear (Clear); Bacteria Urine None Seen /hpf; Bilirubin Urine Negative (Negative); Blood Urine Negative (Negative); Color Urine Yellow (Yellow); Glucose Urine UA Negative (Negative); Ketones Urine Negative (Negative); Leukocyte Esterase Ur Trace LEU/UL (Negative); Need Manual Microscopic Reviewed; Nitrate Urine Negative (Negative); Non Pathogenic Casts 0-2; Protein Urine Trace mg/dL (Negative); RBC Urine 0-2 /hpf (0-2); Specific Grav Ur 1.007 (1.001-1.035); Squamous Epithelial Cell Urine None seen /hpf (Few); Urobilinogen Urine 0.2 mg/dL (<2.0); WBC Urine 0-5 /hpf; pH Urine 6.5 (5.0-9.0)
[2023-07-20 09:31] LABS: Add Urine Microscopic? YES
[2023-07-20 11:37] LABS: Glucose Point of Care 71 mg/dl (65-105)
[2023-07-20 12:10] LABS: Glucose Point of Care 78 mg/dl (65-105)
--- NOTE | 2023-07-20 15:14 | PCPTNOTE ---
Waiting for complete work up prior to PT evaluation (pending MRI). Will follow.
--- NOTE | 2023-07-20 15:33 | PM.IMHP ---
H&P: HPI History of Present Illness Date/Time: 07/20/23 15:33 Chief Complaint: HOLCOMB, Focal Weakness Narrative: 48-year-old female presents here with seizure-like activity, focal numbness, and migraine with past medical history of TBI related to trauma while in the , migraines, PTSD, kidney stones, and anxiety. patient reports that she woke up around 6:00 a.m., stretched, and began to feel off. Patient began to experience abnormal movements of her body. She described the event as if a rockstar lost control and like she was twitching like a ghost . due to the abnormal movements, she ended up sliding off of the bed onto the floor. She remained conscious during the event. She denies hitting her head or loss of consciousness. States she felt trapped and like she did not have control. After event. She felt more weak on the right in like she could control her right hand. She reports that she has been feeling more off in the last few months. States that she felt paralyzed, stunned, and is having a decrease in her ability to recall. Mom reports that the patient initially had some word-finding difficulty. Focal weakness and word-finding difficulty has resolved. However patient now has migraine, right-sided and affecting her eye, ear, jaw, and teeth. Endorsing photophobia, phonophobia, and sensitivity to smells. States that this is not her typical migraines. Her typical migraines have some photophobia, phonophobia, sensitivity to smells however it is usually accompanied by flashes and nausea. Typically it is not unilateral with facial tenderness. States she follows with a neurologist at the [place], last seen a while ago with an upcoming appointment in a few weeks. not currently on a prophylactic medication for her migraines, on Maxalt and Zofran if migraine occurs. Mother expressed concerns about patient's mental health. 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 mom reports that she has been overall declining and not coping well for the past few years. She currently sees a psychiatrist. Currently denying any suicidal ideation, homicidal ideation, history of bulimia or anorexia. Reports she has been eating less recently due to nausea. But has had a significant reduction in PO intake the last day. Last bowel movement was 4-5 days ago. Review of Systems Review of Systems: All systems reviewed & are unremarkable except as noted in HPI and below PMFSH Past Medical History Medical History Anxiety History of migraine History of posttraumatic stress disorder (PTSD) Kidney stones Surgical History Surgical History No pertinent past surgical history Social History Social History (Updated 07/20/23 @ 23:23 by Iman Morales APRN) Social History: Currently living with her mom. Surrogate decision maker: Rachel Sandoval, mother. Code Status: Full Code. Smoking status: Never smoker Alcohol intake: never Substance use: current Substance use type: marijuana Other substance usage details: cream used on back Last use: 06/20/23 Lack of Transportation: No Lack of Food: Never True Current Housing: I Have Housing Concerned About Future Housing: No Difficulty Paying Gas/Electric Bills: No Difficulty Paying for Meds: No Currently Unemployed: No Education: Master's Degree or Higher Difficulty w/ Childcare or Family Care: No Gender identity (if verbalized by the patient): Female Spiritual care concerns: Yes (DOES NOT EAT PORK) Meds Home Medications and Allergies Home Medications Medication Instructions Recorded Confirmed Type ondansetron 4 mg disintegrating 4 mg PO Q6H PRN nausea and 12/02/21 07/20/23 Rx tablet vomiting #10 tabs cyclobenzaprine 10 mg tablet 10 mg PO BID PRN muscle spasm #10 05/27
[2023-07-20] MEDS: LACTATED RINGERS 1,000 ML 999 ML IV CONT (16:05)
[2023-07-20] MEDS: KETOROLAC (*BKC) 60 MG/2 ML VIAL IM (16:06)
[2023-07-20] MEDS: PROCHLORPERAZINE EDISYLATE 10 MG/2 ML VIAL IV PUSH (16:08)
[2023-07-20] MEDS: diphenhydrAMINE HCl INJ 50 MG/ML VIAL 25 MG IV PUSH (16:09)
[2023-07-20] MEDS: DOCUSATE SODIUM 100 MG CAPSULE PO (16:10)
[2023-07-20] MEDS: ACETAMINOPHEN 325 MG TABLET 650 MG PO (16:10)
[2023-07-20] MEDS: hydrOXYzine HCL 25 MG TABLET 50 MG PO (16:10)
[2023-07-20] MEDS: HYOSCYAMINE SULFATE 0.125 MG TABLET SUBLINGUAL (16:10)
[2023-07-20 16:44] LABS: Glucose Point of Care 97 mg/dl (65-105)
[2023-07-20] MEDS: DEXTROSE 5%/LACTATED RINGERS 1,000 ML 100 ML IV CONT (17:08)
[2023-07-20] MEDS: buPROPion HCL XL (24 HR) 150 MG TABCR 450 MG PO (20:19)
[2023-07-21] VITALS: PULSE 74
[2023-07-21 04:00] VITALS: PULSE 61
[2023-07-21 05:19] VITALS: BP 100/57; PULSE 68; RESP 13; TEMP 36.7; O2SAT 100
[2023-07-21] MEDS: ENOXAPARIN 40 MG/0.4 ML SYRINGE SUB-Q (08:39)
[2023-07-21] MEDS: ACETAMINOPHEN 325 MG TABLET 650 MG PO (08:39)
[2023-07-21] MEDS: hydrOXYzine HCL 25 MG TABLET 50 MG PO (08:39)
[2023-07-21] MEDS: VITAMIN E 400 UNIT CAPSULE PO (08:40)
[2023-07-21] MEDS: RIZATRIPTAN BENZOATE 10 MG ODT PO (08:40)
[2023-07-21] MEDS: BISACODYL 5 MG TABLET EC PO (08:40)
[2023-07-21] MEDS: DOCUSATE SODIUM 100 MG CAPSULE PO (08:40)
[2023-07-21] MEDS: VITAMIN B COMPLEX CAPSULE 1 CAP PO (08:40)
[2023-07-21] MEDS: OMEGA 3 POLYUNSAT FATTY ACIDS 1 GM CAP PO (08:40)
[2023-07-21] MEDS: DICYCLOMINE HCL 10 MG CAPSULE PO (08:40)
[2023-07-21 12:00] VITALS: PULSE 80
--- NOTE | 2023-07-21 12:43 | P.PNIM_ITS ---
Progress Note: A&P Assessment and Plan (1) Migraine: Code(s): G43.909 - Migraine, unspecified, not intractable, without status migrainosus Status: Acute (2) Weakness: Code(s): R53.1 - Weakness Status: Acute (3) Seizure-like activity: Code(s): R56.9 - Unspecified convulsions Status: Acute Plan Problem List 1. migraine * LR 1L bolus * Compazine 10 mg IVP x1 * Ketoralac 60 mg IVP x1 * zofran IV PRN * migraine improved, declined migraine medication this evening * TYL prn 2. weakness * glucose 71, poor PO intake. post-bolus will infuse d5/l4 at 100 ml/hr x 500 mL. * focal initially - obtaining brain MRI to rule out CVA/TIA. allergy to contrast - neurology okay with non-con MRI. * hold on further CVA w/u until MRI results due to low suspicion. * PT/OT eval and treat * neurochecks Q4H * cardiac montioring 3. seizure-like activity * abnormal movements without loss of consciousness or postictal phase * neurology consulted - [facility] * DD: conversion disorder, pseudoseizures, partial seizures, CVA, TIA 4. constipation * last BM 4-5 days ago (as of 07/20) * bisacodyl PRN * docusate PRN * fluid resuscitation Chronic Conditions - home Flexeril and ODT zofran held Diet: heart healthy, dietary supplements GI Prophylaxis: not currently indicated DVT Prophylaxis: SCDs, Lovenox 40 Lines: pIV Code Status: Full Code Subjective Date/time seen: 07/21/23 12:43 Interval history: No new complaints Exam Narrative: resting in hospital bed, mother at bedside. Const: General: no acute distress and uncomfortable HENMT: Mouth: Yes dry mucous membranes Eyes: General: appearance normal, both eyes and all related structures Sclera: sclerae normal Pupils: Equal, round and reactive pupils present Other: +photophobia. No nystagmus. Difficult to examine due to sensitivity. Resp: Effort & Inspection: normal respiratory effort Auscultation: clear to auscultation bilaterally Cardio: Rate: regular rate Rhythm: regular rhythm Other: S1-S2 present without murmur, rub, ectopy Skin: General skin exam: normal color and no rashes or lesions noted Wounds: no wounds Neuro: Cranial nerves: Yes Equal, round and reactive pupils present Speech: normal speech Sensory Exam: normal sensation Other: No focal weakness, +4/5 in all extremities. A/Ox4. speech is clear, no word- finding difficulties. Facial senisitivty on left. Extrem: General: normal to inspection Psych: Mental Status: mental status grossly normal Affect: Anxious affect present Other: Denies SI/HI. Objective Data Vital Signs Vital Signs: Vital Signs - 24 hr 07/20/23 14:00 07/20/23 16:00 07/20/23 20:00 Temperature 97.5 F L Pulse Rate 76 80 80 Respiratory Rate 16 16 Blood Pressure 91/59 L Pulse Oximetry 100 100 Oxygen Delivery Room Air 07/20/23 21:07 07/20/23 22:24 07/20/23 20:00 Temperature 97.9 F Pulse Rate 73 77 Respiratory Rate 13 Blood Pressure 102/54 L Pulse Oximetry 99 Oxygen Delivery 07/21/23 00:00 07/21/23 04:00 07/21/23
--- NOTE | 2023-07-21 12:43 | PM.IMPN ---
Progress Note: A&P Assessment and Plan (1) Migraine: Code(s): G43.909 - Migraine, unspecified, not intractable, without status migrainosus Status: Acute (2) Weakness: Code(s): R53.1 - Weakness Status: Acute (3) Seizure-like activity: Code(s): R56.9 - Unspecified convulsions Status: Acute Plan Problem List 1. migraine LR 1L bolus Compazine 10 mg IVP x1 Ketoralac 60 mg IVP x1 zofran IV PRN migraine improved, declined migraine medication this evening TYL prn 2. weakness glucose 71, poor PO intake. post-bolus will infuse d5/l4 at 100 ml/hr x 500 mL. focal initially - obtaining brain MRI to rule out CVA/TIA. allergy to contrast - neurology okay with non-con MRI. hold on further CVA w/u until MRI results due to low suspicion. PT/OT eval and treat neurochecks Q4H cardiac montioring 3. seizure-like activity abnormal movements without loss of consciousness or postictal phase neurology consulted - [facility] DD: conversion disorder, pseudoseizures, partial seizures, CVA, TIA 4. constipation last BM 4-5 days ago (as of 07/20) bisacodyl PRN docusate PRN fluid resuscitation Chronic Conditions - home Flexeril and ODT zofran held Diet: heart healthy, dietary supplements GI Prophylaxis: not currently indicated DVT Prophylaxis: SCDs, Lovenox 40 Lines: pIV Code Status: Full Code Subjective Date/time seen: 07/21/23 12:43 Interval history: No new complaints Exam Narrative: resting in hospital bed, mother at bedside. Const: General: no acute distress and uncomfortable HENMT: Mouth: Yes dry mucous membranes Eyes: General: appearance normal, both eyes and all related structures Sclera: sclerae normal Pupils: Equal, round and reactive pupils present Other: +photophobia. No nystagmus. Difficult to examine due to sensitivity. Resp: Effort & Inspection: normal respiratory effort Auscultation: clear to auscultation bilaterally Cardio: Rate: regular rate Rhythm: regular rhythm Other: S1-S2 present without murmur, rub, ectopy Skin: General skin exam: normal color and no rashes or lesions noted Wounds: no wounds Neuro: Cranial nerves: Yes Equal, round and reactive pupils present Speech: normal speech Sensory Exam: normal sensation Other: No focal weakness, +4/5 in all extremities. A/Ox4. speech is clear, no word-finding difficulties. Facial senisitivty on left. Extrem: General: normal to inspection Psych: Mental Status: mental status grossly normal Affect: Anxious affect present Other: Denies SI/HI. Objective Data Vital Signs Vital Signs: Vital Signs - 24 hr 07/20/23 14:00 07/20/23 16:00 07/20/23 20:00 Temperature 97.5 F L Pulse Rate 76 80 80 Respiratory Rate 16 16 Blood Pressure 91/59 L Pulse Oximetry 100 100 Oxygen Delivery Room Air 07/20/23 21:07 07/20/23 22:24 07/20/23 20:00 Temperature 97.9 F Pulse Rate 73 77 Respiratory Rate 13 Blood Pressure 102/54 L Pulse Oximetry 99 Oxygen Delivery 07/21/23 00:00 07/21/23 04:00 07/21/23 05:19 Temperature 98.1 F Pulse Rate 74 61 68 Respiratory Rate 13 Blood Pressure 100/57 L Pulse Oximetry 100 Oxygen Delivery 07/21/23 08:15 Temperature Pulse Rate Respiratory Rate Blood Pressure Pulse Oximetry Oxygen Delivery Room Air Intake/Output Intake/Output: Intake & Output 07/18/23 07/19/23 07/20/23 07/21/23 23:59 23:59 23:59 23:59 Intake Total 1000 740 Output Total 400 500 Balance 600 240 Meds/Results Medications: Active Medications Generic Name Dose Route Start Last Admin Trade Name Freq PRN Reason Stop Dose Admin Acetaminophen 650 mg 07/20/23 15:44 07/21/23 08:39 Acetaminophen 325 Mg Tablet PO 650 mg Q4H PRN Administration Mild Pain (1-3) or Fever Bisacodyl 5 mg 07/20/23 15:44 07/21/23 08:40 Bisacodyl 5 Mg Tablet Ec PO 5 mg DAILY PRN Admini
--- NOTE | 2023-07-21 15:02 | PCPTNOTE ---
Waiting for MRI results and neuro consult prior to PT evaluation. Will follow.
--- NOTE | 2023-07-21 15:06 | PCOTNOTE ---
Waiting for MRI results and neuro consult prior to OT evaluation. Following.
--- NOTE | 2023-07-21 15:22 | WPDNEURCNPN ---
Assessment and Plan Assessment and plan (1) Seizure-like activity: Code(s): R56.9 - Unspecified convulsions Status: Acute (2) Migraine: Code(s): G43.909 - Migraine, unspecified, not intractable, without status migrainosus Status: Acute Plan 1. Question regarding the posttraumatic seizure EEG will be obtained in addition to the MRI of the brain. 2. Question regarding a TIA versus a complicated migraine but again MRI will definitely rule out the possibility of the stroke and the EEG again will be helpful for any further recommendatio are made. I will hold discussed with about the pros and cons of the diagnosis. Consult date: 07/21/23 HPI: Germain Caro is a 48 year old female Admitted to the hospital through the emergency room complaints of right-sided weakness and seizure. Patient has a history of TBI but has never had seizure previously a traumatic brain injury was related to multiple parachute jumps. This particular time she reported when she woke up in the morning she felt numbness and wash over her and fell from the bed and subsequent she was having difficulties moving her right upper extremity and right lower extremity. Patient has been taking Wellbutrin 450 mg at night along with hydroxy seen 50 mg p.r.n. and rizatriptan 10 mg p.r.n. and zaleplon 10 mg HS p.r.n. for insomnia is allergic to morphine penicillin and contrast for CT she does have ongoing history of as mentioned above migraine, posttraumatic stress disorder, and renal stones, never a smoker never alcohol drinker her initial examination in the emergency room was normal except her tearful affect, vital signs were normal CBC was normal BMP was normal with sodium 136 and routine lab studies were normal as well drug screen was negative, CT scan of the head was negative he was admitted to the hospital with stroke scale of 1 and since admission MRI has been ordered but not available as yet the CT scan of the he [facility] Past Medical History Medical History Anxiety History of migraine History of posttraumatic stress disorder (PTSD) Kidney stones Surgical History Surgical History No pertinent past surgical history Social History Social History (Updated 07/20/23 @ 23:23 by Iman Morales APRN) Social History: Currently living with her mom. Surrogate decision maker: Rachel Sandoval, mother. Code Status: Full Code. Smoking status: Never smoker Alcohol intake: never Substance use: current Substance use type: marijuana Other substance usage details: cream used on back Last use: 06/20/23 Lack of Transportation: No Lack of Food: Never True Current Housing: I Have Housing Concerned About Future Housing: No Difficulty Paying Gas/Electric Bills: No Difficulty Paying for Meds: No Currently Unemployed: No Education: Master's Degree or Higher Difficulty w/ Childcare or Family Care: No Gender identity (if verbalized by the patient): Female Spiritual care concerns: Yes (DOES NOT EAT PORK) Meds Home Medications and Allergies Home Medications Medication Instructions Recorded Confirmed Type ondansetron 4 mg disintegrating 4 mg PO Q6H PRN nausea and 12/02/21 07/20/23 Rx tablet vomiting #10 tabs cyclobenzaprine 10 mg tablet 10 mg PO BID PRN muscle spasm #10 05/27/22 07/20/23 Rx tabs bupropion HCl 150 mg 24 hr tablet, 450 mg PO HS 07/20/23 07/20/23 History extended release calcium carb-vit D3-minerals 600 1 tablet PO DAILY 07/20/23 07/20/23 History mg calcium-400 unit tablet dicyclomine 10 mg capsule 10 mg PO BID PRN Spasms 07/20/23 07/20/23 History hydroxyzine HCl 50 mg tablet 50 mg PO PRN PRN itching, nausea, 07/20/23 07/20/23 History anxiety hyoscyamine sulfate 0.125 mg 0.125 mg sublingual PRN PRN Spasms 07/20/23 07/20/23 History sublingual tablet (Oscimin SL) omega 3-d
--- NOTE | 2023-07-21 16:31 | PM.DS ---
DS: Admitting Diagnosis Discharge Date 07/21/23 Admitting Diagnosis tia vs sz vs migraine DS: Discharge Diagnosis Discharge Diagnosis (1) Migraine: Code(s): G43.909 - Migraine, unspecified, not intractable, without status migrainosus Status: Acute (2) Weakness: Code(s): R53.1 - Weakness Status: Acute (3) Seizure-like activity: Code(s): R56.9 - Unspecified convulsions Status: Acute Plan Problem List 1. migraine LR 1L bolus Compazine 10 mg IVP x1 Ketoralac 60 mg IVP x1 zofran IV PRN migraine improved, declined migraine medication this evening TYL prn 2. weakness glucose 71, poor PO intake. post-bolus will infuse d5/l4 at 100 ml/hr x 500 mL. focal initially - obtaining brain MRI to rule out CVA/TIA. allergy to contrast - neurology okay with non-con MRI. hold on further CVA w/u until MRI results due to low suspicion. PT/OT eval and treat neurochecks Q4H cardiac montioring 3. seizure-like activity abnormal movements without loss of consciousness or postictal phase neurology consulted - Toño DD: conversion disorder, pseudoseizures, partial seizures, CVA, TIA 4. constipation last BM 4-5 days ago (as of 07/20) bisacodyl PRN docusate PRN fluid resuscitation Chronic Conditions - home Flexeril and ODT zofran held Diet: heart healthy, dietary supplements GI Prophylaxis: not currently indicated DVT Prophylaxis: SCDs, Lovenox 40 Lines: pIV Code Status: Full Code DS: Summary Hospital Course Hospital Course: 48 yo admitted for weird neurologic symptoms. Neuro saw patient and recommended outpatient fu and eeg. This can be set up by neuro. Also she will be dc on aspirin. ok to dc and to fu with neuro Time Spent with Patient Time attestation: Total time spent providing and/or coordinating discharge services: Exam Narrative: resting in hospital bed, mother at bedside. Const: General: no acute distress and uncomfortable HENMT: Mouth: Yes dry mucous membranes Eyes: General: appearance normal, both eyes and all related structures Sclera: sclerae normal Pupils: Equal, round and reactive pupils present Other: +photophobia. No nystagmus. Difficult to examine due to sensitivity. Resp: Effort & Inspection: normal respiratory effort Auscultation: clear to auscultation bilaterally Cardio: Rate: regular rate Rhythm: regular rhythm Other: S1-S2 present without murmur, rub, ectopy Skin: General skin exam: normal color and no rashes or lesions noted Wounds: no wounds Neuro: Cranial nerves: Yes Equal, round and reactive pupils present Speech: normal speech Sensory Exam: normal sensation Other: No focal weakness, +4/5 in all extremities. A/Ox4. speech is clear, no word-finding difficulties. Facial senisitivty on left. Extrem: General: normal to inspection Psych: Mental Status: mental status grossly normal Affect: Anxious affect present Other: Denies SI/HI. DS: Data Data Completed and Pending Labs on day of discharge: Labs from last 24 hours 07/20/23 16:41 POC Capillary Glucose 97 Discharge Plan Discharge Attending physician on discharge: Jn Keith Consulting providers: Yvonne Lundberg Discharging Clinician: Jn Keith Patient Disposition: Home, Self-Care Activity: as tolerated Diet: as tolerated Patient Instructions: Antibiotic Form Stand Alone Forms: General Discharge Information Follow-up/Referrals: Yvonne Lundberg MD [Physician] - Discharge Medications: New aspirin [Adult Aspirin Regimen] 81 mg tablet,delayed release (DR/EC) 81 mg PO DAILY Qty: 30 0RF Continued ondansetron 4 mg tablet,disintegrating 4 mg PO Q6H PRN (Reason: nausea and vomiting) Qty: 10 0RF cyclobenzaprine 10 mg tablet 10 mg PO BID PRN (Reason: muscle spasm) Qty: 10 0RF hydroxyzine HCl 50 mg tablet 50 mg PO PRN PRN (Reason: itching, nausea, a
== END 2023-07-21 17:35 | disposition home or self-care (01) ==
LOC: ANHED 08:12 → ANH3MEDSUR 07-21 16:30
PROVIDERS: Admitting Provider Internal Medicine; Emergency Provider Emergency Medicine; Visit Provider Chiropractor
DX: G43.909 Migraine, unspecified, not intractable, without status migrainosus (principal); R53.1 Weakness; R56.9 Unspecified convulsions; R20.0 Anesthesia of skin; M62.838 Other muscle spasm; K59.00 Constipation, unspecified; G47.00 Insomnia, unspecified; R94.31 Abnormal electrocardiogram [ECG] [EKG]; F41.9 Anxiety disorder, unspecified; R11.0 Nausea; F43.10 Post-traumatic stress disorder, unspecified; Z87.820 Personal history of traumatic brain injury; F12.90 Cannabis use, unspecified, uncomplicated; Z79.899 Other long term (current) drug therapy
CPT/HCPCS: 36415; 70450; 70551; 80053; 80307; 81001; 81025; 82948; 83605; 85025; 85610; 85730; 93005; 96372; 96374; 96375; 99285; A9270; G0378; J0780; J1200; J1650; J1885; J7120; J7121

== ENCOUNTER 2025-01-28 09:57 | Emergency (ER) | payer OTHER, SELFPAY ==
--- NOTE | ~2025-01-28 | XR_ITS ---
Clinical Indication: Chest pain PA and lateral views of the chest: Comparison: 02/03/2022 Findings: The lungs are clear, without evidence of focal consolidation or pleural effusion. Cardiome diastinal silhouette is within normal limits. Bones and soft tissues are unremarkable. Impression: Normal chest. Reviewed, dictated and finalized at location . Impression: Normal chest.
--- NOTE | 2025-01-28 09:58 | ECG_ITS ---
Test Date: 2025-01-28 10:15:18 Measurements Intervals [place] Rate: 69 P: 46 NM: 127 QRS: 41 QRSD: 88 T: 9 QT: 401 QTc: 432 Interpretive Statements SINUS RHYTHM POSSIBLE RIGHT VENTRICULAR CONDUCTION DELAY BORDERLINE T WAVE ABNORMALITY- ANTEROLAT/INF LEADS BASELINE ARTIFACT- I, III, AVR, AVL, AVF BORDERLINE ECG No previous ECG available for comparison Electronically Signed On 01-28-2025 10:57:30 CDT by Gonzalo Acuna D.O.
[2025-01-28 10:16] VITALS: BP 137/85; PULSE 75; RESP 12; O2SAT 100
[2025-01-28 10:22] LABS: Basophils Absolute Auto 0.1 K/mm3 (0.0-0.1); Basophils Percent Auto 0.7 % (0.2-1.2); Eosinophils Absolute Auto 0.1 K/mm3 (0-0.3); Eosinophils Percent Auto 1.3 % (0-4.4); Hematocrit 43.5 % (37.0-47.0); Immature Granulocyte Absolute 0.02 K/mm3 (0.00-0.031); Immature Granulocyte Percent A 0.3 % (0-0.5); Lymphocytes Absolute Auto 2.26 K/mm3 (0.9-3.2); Lymphocytes Percent Auto 33.1 % (18.3-44.2); Mean Corpuscular HGB Conc 32.2 g/dl (32-36); Mean Corpuscular Hemoglobin 32.2 pg (26-34); Mean Platelet Volume 8.5 fl (7.4-10.4); Monocytes Absolute Auto 0.5 K/mm3 (0.1-0.6); Monocytes Percent Auto 7.8 % (2.6-8.5); Neutrophils Absolute Auto 3.9 K/mm3 (1.3-6.7); Neutrophils Percent Auto 56.8 % (45.5-73.1); Platelet Count Result 431 k/mm3 (150-375); Red Blood Count 4.35 M/mm3 (4.2-5.4); Red Cell Distribution Width 12.4 % (11.5-14.5); White Blood Count 6.8 K/mm3 (4.5-10.0)
--- NOTE | 2025-01-28 10:28 | ED.GENADULT ---
HPI - General Adult General Chief complaint: Chest Pain Stated complaint: chest pain, other pains Time Seen by Provider: 01/28/25 10:21 History of Present Illness HPI narrative: Patient is a 49-year-old female who presents ER with multiple complaints. 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 Sharp. She also developed right-sided headache and some achiness in her right neck. She has some throbbing back pain. Has history of migraines and was started have a migraine last night as well that is unsure if this is 1. She is feeling anxious. No numbness or weakness arms or legs. No history of heart disease. No lower extremity swelling. No hemoptysis. Related Data Home Medications ?Medication ?Instructions ?Recorded ?Confirmed ?Last Taken ?Type bupropion HCl 150 mg 24 hr tablet, 450 mg PO HS 07/20/23 07/20/23 Unknown History extended release calcium 600 mg (as carbonate)-vit 1 tablet PO DAILY 07/20/23 07/20/23 Unknown History D3 10 mcg (400 unit)-minerals tablet dicyclomine 10 mg capsule 10 mg PO BID PRN Spasms 07/20/23 07/20/23 Unknown History hydroxyzine HCl 50 mg tablet 50 mg PO PRN PRN itching, nausea, 07/20/23 07/20/23 Unknown History anxiety hyoscyamine sulfate 0.125 mg 0.125 mg sublingual PRN PRN Spasms 07/20/23 07/20/23 Unknown History sublingual tablet (Oscimin SL) omega 3-dha 120 mg-epa 180 mg-fish 1 cap PO DAILY 07/20/23 07/20/23 Unknown History oil 600 mg capsule ([place]-3) rizatriptan 10 mg tablet (Maxalt) 10 mg PO PRN PRN Migraine Headache 07/20/23 07/20/23 Unknown History vitamin B complex 1 tablet PO DAILY 07/20/23 07/20/23 Unknown History vitamin E 268 mg (400 unit) capsule 268 mg PO DAILY 07/20/23 07/20/23 Unknown History zaleplon 10 mg capsule 10 mg PO HS PRN Insomnia 07/20/23 07/20/23 Unknown History Allergies Allergy/AdvReac Type Severity Reaction Status Date / Time iohexol (From contrast - CT, Allergy Hives Verified 01/28/25 10:52 X-RAY) morphine Allergy Hives Verified 01/28/25 10:52 Penicillins Allergy Stopped Verified 01/28/25 10:52 Breathing Review of Systems Review of Systems: All systems reviewed & are unremarkable except as noted in HPI and below Constitutional: Constitutional: Reports no additional constitutional complaints ENT: Reports system reviewed and no additional complaints, except as documented Cardiovascular: Cardiovascular: Reports no additional cardiovascular complaints Respiratory: Respiratory: Reports no additional respiratory complaints Gastrointestinal: Gastrointestinal: Reports no additional gastrointestinal complaints Musculoskeletal: Musculoskeletal: Reports no additional musculoskeletal complaints [facility] Past Medical History Medical History (Updated 01/28/25 @ 15:03 by Asaf Hoskins MD) Anxiety Kidney stones History of posttraumatic stress disorder (PTSD) History of migraine Surgical History Surgical History (Updated 01/28/25 @ 12:46 by Asaf Hoskins MD) H/O knee surgery H/O foot surgery Social History Social History (Updated 07/20/23 @ 23:23 by Iman Morales APRN) Social History: Currently living with her mom. Surrogate decision maker: Rachel Sandoval, mother. Code Status: Full Code. Smoking status: Never smoker Alcohol intake: never Substance use: current Substance use type: marijuana Other substance usage details: cream used on back Last use: 06/20/23 Lack of Transportation: No Lack of Food: Never True Current Housing: I Have Housing Concerned About Future Housing: No Difficulty Paying Gas/Electric Bills: No Difficulty Paying for Meds: No Currently Unemployed: No Education: Master's Degree or Higher Difficulty w/ Childcare or Family Care: No Gender identity (if verbalized by the patient): Female Spiritual care concerns: Yes (DOES NOT EAT PORK) Exam Narrative: GENERAL: Well-appearing, well-nourished, and in no acute distress. HEAD: Normocephalic, atraumatic. ENT: Mucous membranes moist. NECK: Supple. CHEST: Clear to auscultation. No respiratory distress. HEART: Regular rate and rhythm. Normal peripheral pulses. ABDOMEN: Soft, nontender, nondistended. EXTREMITIES: Normal range of motion. No edema. SKIN: Warm, dry, no rash. NEURO: Alert and oriented x3. PSYCH: Anxious. Course Course Emergency Course: Headache and neck pain improved with Toradol. Says still some mild chest discomfort. Troponin negative x2. D-dimer negative. Recommend follow-up with PCP. Scheduled NSAIDs for home as well as PPI. Patient also appears dehydrated. Vital Signs Vital signs: Vital Signs Pulse Rate 75 01/28/25 10:16 Respiratory Rate 12 01/28/25 10:16 Blood Pressure 137/85 01/28/25 10:16 Pulse Oximetry 100 01/28/25 10:16 Oxygen Delivery Room Air 01/28/25 10:16 Pulse Rate 75 01/28/25 10:16 Respiratory Rate 12 01/28/25 10:16 Blood Pressure 137/85 01/28/25 10:16 Pulse Oximetry 100 01/28/25 10:16 Oxygen Delivery Room Air 01/28/25 10:16 Medical Decision Making Vital Signs Vital Signs: Vital Signs Pulse Rate 75 01/28/25 10:16 Respiratory Rate 12 01/28/25 10:16 Blood Pressure 137/85 01/28/25 10:16 Pulse Oximetry 100 01/28/25 10:16 Oxygen Delivery Room Air 01/28/25 10:16 Pulse Rate 75 01/28/25 10:16 Respiratory Rate 12 01/28/25 10:16 Blood Pressure 137/85 01/28/25 10:16 Pulse Oximetry 100 01/28/25 10:16 Oxygen Delivery Room Air 01/28/25 10:16 Lab Data 01/28/25 10:15 01/28/25 10:15 Labs: Lab Results 01/28/25 01/28/25 Range/Units 10:15 13:31 WBC 6.8 (4.5-10.0) K/mm3 RBC 4.35 (4.2-5.4) M/mm3 Hgb 14.0 (12.0-15.0) g/dL Hct 43.5 (37.0-47.0) % MCV 100.0 (80-100) fl MCH 32.2 (26-34) pg MCHC 32.2 (32-36) g/dl RDW 12.4 (11.5-14.5) % Plt Count 431 H (150-375) k/mm3 MPV 8.5 (7.4-10.4) fl Immature Gran % (Auto) 0.3 (0-0.5) % Neut % (Auto) 56.8 (45.5-73.1) % Lymph % (Auto) 33.1 (18.3-44.2) % [place] % (Auto) 7.8 (2.6-8.5) % Eos % (Auto) 1.3 (0-4.4) % Baso % (Auto) 0.7 (0.2-1.2) % Lymph # (Auto) 2.26 (0.9-3.2) K/mm3 [place] # (Auto) 0.5 (0.1-0.6) K/mm3 Eos # (Auto) 0.1 (0-0.3) K/mm3 Baso # (Auto) 0.1 (0.0-0.1) K/mm3 Abs Immat Gran (auto) 0.02 (0.00-0.031) K/mm3 Absolute Neuts (auto) 3.9 (1.3-6.7) K/mm3 Absolute Nucleated RBC 0.000 (0.0-0.012) K/mm3 Nucleated RBC % 0.0 (0.0-0.2) % PT 12.3 (11.1-14.7) Seconds INR 0.9 APTT 24.3 (22.3-36.8) Seconds D-Dimer 0.37 (<0.48) ug/mL Sodium 141 (137-145) mmol/L Potassium 4.0 (3.4-5.0) mmol/L Chloride 104 (98-107) mmol/L Carbon Dioxide 26 (22-30) mmol/L Anion Gap 11 (4-12) mmol/L BUN 18 H (7-17) mg/dL Creatinine 1.62 H (0.7-1.0) mg/dL Estim Creat Clear Calc 35 ml/min Estimated GFR 34 L (59 - ) Glucose 92 (65-110) mg/dL Calcium 9.2 (8.4-10.2) mg/dL Total Bilirubin 0.4 (0.2-1.3) mg/dL AST 26 (14-36) U/L ALT 18 (6-35) U/L Alkaline Phosphatase 64 (38-126) U/L Troponin I < 0.012 < 0.012 (0.000-0.034) ng/mL Total Protein 8.0 (6.3-8.2) g/dL Albumin 4.5 (3.5-5.1) g/dL Lipase 199 (23-300) U/L Imaging Data Radiologist's impression: ITS Impressions Chest X-Ray 01/28/25 12:02 Impression: Normal chest. ECG Data EKG #1: ECG completion date: 01/28/25 ECG completion time: 10:15 EKG Interpretation: normal rate (69), sinus rhythm, non-specific ST changes, normal QRS, normal QT and NL axis Discharge Plan Discharge Clinical Impression: Migraine, Chest pain, Dehydration Patient Disposition: Home Condition: Stable Instructions: Chest Pain (ED), Dehydration (ED) Additional Instructions: Please return to the emergency department if you develop severe and persistent chest pain, difficulty breathing, dizziness, leg swelling or if you are coughing up blood as these can be signs of a medical emergency. Please call your doctor for a follow up appointment to determine the need for further testing. Patient Language: Moroccan Prescriptions: New naproxen 250 mg tablet 250 mg PO BID Qty: 10 0RF pantoprazole 20 mg tablet,delayed release (DR/EC) 20 mg PO HS Qty: 14 0RF No Action ondansetron 4 mg tablet,disintegrating 4 mg PO Q6H PRN (Reason: nausea and vomiting) Qty: 10 0RF cyclobenzaprine 10 mg tablet 10 mg PO BID PRN (Reason: muscle spasm) Qty: 10 0RF hydroxyzine HCl 50 mg tablet 50 mg PO PRN PRN (Reason: itching, nausea, anxiety) hyoscyamine sulfate [Oscimin SL] 0.125 mg tablet, sublingual 0.125 mg sublingual PRN PRN (Reason: Spasms) zaleplon 10 mg capsule 10 mg PO HS PRN (Reason: Insomnia) bupropion HCl 150 mg tablet extended release 24 hr 450 mg PO HS rizatriptan [Maxalt] 10 mg Tablet 10 mg PO PRN PRN (Reason: Migraine Headache) vitamin B complex Tablet 1 tablet PO DAILY dicyclomine 10 mg Capsule 10 mg PO BID PRN (Reason: Spasms) vitamin E 268 mg (400 unit) Capsule 268 mg PO DAILY calcium carbonate-vit D3-min 600 mg calcium- 400 unit Tablet 1 tablet PO DAILY [place]reme [place]-3 120-180-600 mg Capsule 1 cap PO DAILY aspirin [Adult Aspirin Regimen] 81 mg tablet,delayed release (DR/EC) 81 mg PO DAILY Qty: 30 0RF Follow-up/Referrals: [facility] [Primary Care Provider] - 1 Week Quality HEART score for chest pain patients History: slightly suspicious ECG: normal Age: < or = to 45 years Risk factors: no risk factors known Troponin: < or = to 1x normal limit Heart score: 0
[2025-01-28 10:33] LABS: Alanine Aminotransferase 18 U/L (6-35); Albumin Level 4.5 g/dL (3.5-5.1); Alkaline Phosphatase 64 U/L (38-126); Anion Gap 11 mmol/L (4-12); Aspartate Amino Transferase 26 U/L (14-36); Bilirubin,Total 0.4 mg/dL (0.2-1.3); Blood Urea Nitrogen 18 mg/dL (7-17); Calcium 9.2 mg/dL (8.4-10.2); Carbon Dioxide 26 mmol/L (22-30); Chloride 104 mmol/L (98-107); Estimated CRCL calculation 35 ml/min; Estimated Glomerular Filt Rate 34; Glucose 92 mg/dL (65-110); Lipase 199 U/L (23-300); Sodium 141 mmol/L (137-145)
[2025-01-28 10:45] LABS: Troponin I < 0.012 ng/mL (0.000-0.034)
[2025-01-28 10:46] LABS: INR 0.9; Partial Thromboplastin Time 24.3 Seconds (22.3-36.8); Prothrombin Time 12.3 Seconds (11.1-14.7)
[2025-01-28] MEDS: SODIUM CHLORIDE 0.9% IV 1,000 ML 999 ML IV CONT (10:55)
[2025-01-28] MEDS: ONDANSETRON INJ 4 MG/2 ML VIAL IV PUSH (10:55)
[2025-01-28] MEDS: ASPIRIN 81 MG CHEWABLE TABLET 324 MG PO (10:55)
[2025-01-28] MEDS: KETOROLAC 30 MG/ML VIAL (*BKC) IV PUSH (10:56)
--- OUTSIDE RECORDS SUMMARY | 2025-01-28 11:00 | XMS_ITS | Clinical Summary ---
Author Organization [facility] Address [address] [place] [address] Care Team Providers Care Class A Regional Truck Driver Name Role Phone Non-Staff, Provider Primary Care Provider Unavai lable Allergies Active Allergy Reactions Criticality Noted Date Comments Iodinated Contrast Media Unknown 08/30/2023 Morphine Unknown 08/30/2023 Penicillins Unknown 08/30/2023 Medications buPROPion SR (WELLBUTRIN SR) 150 MG 12 hr tablet Take 150 mg by mouth 2 (two) times daily. Active hydrOXYzine (ATARAX) 50 MG tablet Take 1 tablet (50 mg total) by mouth 2 (two) times a day. Active rizatriptan (MAXALT) 10 MG tablet Take 1 tablet (10 mg total) by mouth as needed for Migraine. May repeat in 2 hours if needed Active zaleplon (SONATA) 10 MG capsule Take 2 capsules (20 mg total) by mouth nightly as needed. Active ondansetron (ZOFRAN) 8 MG tablet 09/04/2023 Active Social History Tobacco Use Types Packs/Day Years Used Date Smoking Tobacco: Never Smokeless Tobacco: Never Tobacco Cessation:Counseling Given: Not Answered Alcohol Use Standard Drinks/Week Comments Not Currently 0 (1 standard drink = 0.6 oz pur e alcohol) Comments Unknown Sex and Gender Information Value Date Recorded Sex Assigned at Not on file Legal Sex Female 8:36 PM CDT Gender Identity Not on file Sexual Orientation Not on file Last Filed Vital Signs Vital Sign Reading Time Taken Comments Blood Pressure 94/50 09/07/2023 12:30 PM HAND ENDBAND CUTTER Pulse 71 09/07/2023 12:30 PM HAND ENDBAND CUTTER Temperature 36.4 C (97.5 F) 09/07/2023 7:45 AM HAND ENDBAND CUTTER Respiratory Rate 16 09/07/2023 7:45 AM HAND ENDBAND CUTTER Oxygen Saturation 97% 09/07/2023 12:30 PM HAND ENDBAND CUTTER Inhaled Oxygen Concentration - - Weight 64.1 kg (141 lb 5 oz) 09/07/2023 7:45 AM HAND ENDBAND CUTTER Height 165.1 cm (5' 5 ) 09/07/2023 7:45 AM HAND ENDBAND CUTTER Body Mass Index 23.52 09/07/2023 7:45 AM HAND ENDBAND CUTTER Plan of Treatment Health Maintenance Due Date Last Done Comments Colorectal Cancer Screening Colonoscopy (10 Years) 1977 Annual Physical 1980 Hepatitis C 1995 Mammogram Screening 2017 COVID-19 Vaccine (2023-2 5 season) 2024 DTaP, Tdap and Td Vaccines ( 4 - Td or Tdap) 10/05/2024 10/05/2014, 12/08/2002, 01/19/1997 Hepatitis B Vaccines Completed 12/23/1996, 05/05/1996, 04/02/1996 Meningococcal Vaccine Aged Out 05/24/2001 No spencer alex eligible based on patient's age to complete this topic Meningococcal B Vaccine Aged Out No l onger eligible based on patient's age to complete this topic Pneumococcal Vaccine: Pediatrics (0 to 5 Years) and At-Risk Patients (6 to 49 Years) Aged Out No longer eligible b ased on patient's age to complete this topic RSV Immunizations Under 20 Months Aged Out No longer eligible b ased on patient's age to complete this topic Insurance ID-[id number] Care Teams Class A Regional Truck Driver Relationship Specialty Start Date End Date Non-Staff, Provider PCP - General UNKNOWN PHYSICIAN SPECIALTY 09/07/23
--- OUTSIDE RECORDS SUMMARY | 2025-01-28 11:00 | XMS_ITS | Encounter Summary ---
Author Organization [facility] Address [address] [place] [address] Care Team Providers Care Auto Service Instructor Name Role Phone Yg Frausto MD Primary Care Provider [phone] Encounter Details Date Type Department Care Team (Late st Contact Info) Description 04/11/2006 Outpatient Historical [facility] [address] [place] [id number] Satish Parish, DO [address] [facility] 

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
--- OUTSIDE RECORDS SUMMARY | 2025-01-28 11:00 | XMS_ITS | Encounter Summary ---
Author Organization [facility] Address [address] [place] [address] Care Team Providers Care Field Mechanical Meter Tester Name Role Phone Yg Frausto MD Primary Care Provider [phone] Encounter Details Date Type Department Care Team (Late st Contact Info) Description 07/09/2006 Outpatient Historical [facility] Medicine [address] [place] [phone] Satish Parish, DO [address] [facility] [place] [phone] Social History Tobacco Use Types Packs/Day Years Used Date Smoking Tobacco: Never Assessed Comments Unknown Sex and Gender Information Value Date Recorded Sex Assigned at Not on file Legal Sex Female 4:42 AM CONCRETE 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
--- OUTSIDE RECORDS SUMMARY | 2025-01-28 11:00 | XMS_ITS | Encounter Summary ---
Author Organization [facility] Address [address] [place] [address] Care Team Providers Care Yeast Cake Cutter Name Role Phone Yg Frausto MD Primary Care Provider [phone] Encounter Details Date Type Department Care Team (Late st Contact Info) Description 12/18/2005 Outpatient Historical [facility] Medicine [address] [place] [phone] Satish Parish, DO 1237 [facility] [place] [phone] Social History Tobacco Use Types Packs/Day Years Used Date Smoking Tobacco: Never Assessed Comments Unknown Sex and Gender Information Value Date Recorded Sex Assigned at Not on file Legal Sex Female 4:42 AM BRIEFCASE SEWER Gender Identity Not on file Sexual Orientation Not on file documented as of this encounter Plan of Treatment Not on file documented as of this encounter Visit Diagnoses Not on filedocumented in this encounter Care Teams Yeast Cake Cutter Relationship Specialty Start Date End Date Yg Frausto MD PCP - General Family Practice 05/05/14 documented as of this encounter
--- OUTSIDE RECORDS SUMMARY | 2025-01-28 11:00 | XMS_ITS | Encounter Summary ---
Author Organization [facility] Address [address] [place] [address] Care Team Providers Care Ground Surveillance Systems Operator Name Role Phone Yg Frausto MD Primary Care Provider [phone] Encounter Details Date Type Department Care Team (Late st Contact Info) Description 08/26/2007 Outpatient Historical [facility] Medicine [address] [place] [phone] Satish Parish, DO 1237 [facility] [place] [phone] Social History Tobacco Use Types Packs/Day Years Used Date Smoking Tobacco: Never Assessed Comments Unknown Sex and Gender Information Value Date Recorded Sex Assigned at Not on file 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
--- OUTSIDE RECORDS SUMMARY | 2025-01-28 11:00 | XMS_ITS | Encounter Summary ---
Author Organization [facility] Address [address] [place] [address] Care Team Providers Care Physician Support Coordinator Name Role Phone Yg Frausto MD Primary Care Provider [phone] Encounter Details Date Type Department Care Team (Late st Contact Info) Description 12/05/2005 Outpatient Historical [facility] Medicine [address] [place] [phone] Satish Parish, DO [address] [facility] [place] [phone] Social History Tobacco Use Types Packs/Day Years Used Date Smoking Tobacco: Never Assessed Comments Unknown Sex and Gender Information Value Date Recorded Sex Assigned at Not on file Legal Sex Female 4:42 AM GAUGE CONTROLLER Gender Identity Not on file Sexual Orientation Not on file documented as of this encounter Plan of Treatment Not on file documented as of this encounter Visit Diagnoses Not on filedocumented in this encounter Care Teams Physician Support Coordinator Relationship Specialty Start Date End Date Yg Frausto MD PCP - General Family Practice 05/05/14 documented as of this encounter
--- OUTSIDE RECORDS SUMMARY | 2025-01-28 11:00 | XMS_ITS | Encounter Summary ---
Author Organization [facility] Address [address] [place] [address] Care Team Providers Care Blow Mold Technician Name Role Phone Yg Frausto MD Primary Care Provider [phone] Encounter Details Date Type Department Care Team (Late st Contact Info) Description 04/04/2006 Outpatient Historical 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
--- OUTSIDE RECORDS SUMMARY | 2025-01-28 11:00 | XMS_ITS | Clinical Summary ---
Author Organization [facility] Address [address] [facility] [place] [address] Care Team Providers Care Dinking Machine Operator Name Role Phone Valarie Muñoz MD Primary Care Provider [phone] Source Comments [facility],non-owned Affiliates and Associated Physician Practices is amultiple site organization consisting of ambulatory clinics and hospital sitesin [place], [place], [place] and [place]. This disclosure is being madepursuant to the Care Everywhere program and may not contain all information available regarding this patient. Last updated 18.[facility] Allergies Active Allergy Reactions Criticality Noted Date Comments Contrast-Iodinated Agents Fo r Ct/Other Rash Low 06/24/2012 Burning sensation Levofloxacin Rash,Itching Low 06/24/2012 Unknown reaction Morphine 06/24/2012 Blisters- rash Penicillins 06/24/2012 Throat swells Medications * Be aware that medications may not be up to date on this document. Alwaysverify current medications with the patient. SUMAtriptan (IMITREX) 100 MG tablet Take 100 mg by mouth once as needed. Active metoclopramide (REGLAN) 10 MG tablet Take 10 mg by mouth 3 times daily as needed Reported on 08/17/2016 Active multivitamin daily (THERAGRAN) tablet Take 1 Tab by mouth daily with food. Active buPROPion SR 12hr (ZYBAN) 150 MG tablet Take 150 mg by mouth once daily. 3 TABS Active Xbts-Lbtewviif-U en-Methyl Mathew (WLWW-YAFQH-FUOL WHIT) 0.5-0.035-5-20 % PTCH by Apply externally route once daily. Active oxycodone-acetam inophen (PERCOCET) 5-325 MG tablet Take 1-2 Tabs by mouth every 4 hours as needed. 30 Tab 0 4 Active Additional Information Patient not taking.Reported on 08/28/2018 ibuprofen (MOTRIN) 800 MG tablet Take 1 Tab by mouth every 8 hours as needed. 50 Tab 0 4 Active Additional Information Patient not taking.Reported on 08/28/2018 hydrOXYzine hcl (ATARAX) 25 MG tablet Take 1 Tab by mouth every 6 hours as needed for Itching. 30 Tab 0 4 Active Additional Information Patient not taking.Reported on 08/17/2016 docusate sodium (COLACE) 100 MG capsule Take 1 Cap by mouth 2 times daily. 60 Cap 0 4 Active polyethylene glycol 3350 (MIRALAX) packet Take 17 g by mouth once daily as needed for Constipation. 10 Packet 0 4 Active Additional Information Patient not taking.Reported on 08/17/2016 buPROPion SR 12hr (WELLBUTRIN SR) 100 MG tablet Take 100 mg by mouth 2 times daily Active SERTRALINE HCL PO Active glucosamine-maite droitin (MAX GLUCOSAMINE CHONDROITIN) 500-400 MG tablet Take 1 tablet by mouth once daily Active azithromycin (ZITHROMAX) 250 MG tablet 2 tabs PO x1 day, and then 1 tab PO days 2-5 6 tablet 8 Active Active Problems No known active problems Social History Tobacco Use Types Packs/Day Years Used Date Smoking Tobacco: Never Smokeless Tobacco: Never Tobacco Cessation:Counseling Given: No Alcohol Use Standard Drinks/Week Comments Yes 0 (1 standard drink = 0.6 oz pur e alcohol) rare Comments No Sex and Gender Information Value Date Recorded Sex Assigned at Not on file Legal Sex Female 2:05 PM MEAT SERVICE TEAM MEMBER Gender Identity Not on file Sexual Orientation Not on file Last Filed Vital Signs Vital Sign Reading Time Taken Comments Blood Pressure 110/76 08/28/2018 10:09 AM MEAT SERVICE TEAM MEMBER Pulse 88 08/28/2018 10:09 AM MEAT SERVICE TEAM MEMBER Temperature 36.9 C (98.4 F) 08/28/2018 10:09 AM MEAT SERVICE TEAM MEMBER Respiratory Rate 16 08/28/2018 10:09 AM MEAT SERVICE TEAM MEMBER Oxygen Saturation 98% 08/28/2018 10:09 AM MEAT SERVICE TEAM MEMBER Inhaled Oxygen Concentration - - Weight 63.5 kg (140 lb) 08/28/2018 10:09 AM MEAT SERVICE TEAM MEMBER Height 167.6 cm (5' 6 ) 08/28/2018 10:09 AM MEAT SERVICE TEAM MEMBER Body Mass Index 22.6 08/28/2018 10:09 AM MEAT SERVICE TEAM MEMBER Plan of Treatment Health Maintenance Due Date Last Done Comments COLOGUARD (AGES 45-75) - COL ON CA SCREENING 1977 COLON MONITORING 1977 COLONOSCOPY - COLON CA SCREENING 1977 CT COLONOGRAPHY - COLON CA SCREENING 1977 Colorectal Cancer Screening 1977 FIT - COLON CA SCREENING 1977 FLEX SIG - COLON CA SCREENING 1977 LIPID TESTING 1977 MAMMOGRAM 1977 HIV SCREENING 1992 HEPATITIS C SCREENING 07/01/1995 DTAP/TDAP/TD VACCINES (1 - Tdap) 1996 HEPATITIS B VACCINE (1 of 3 - 19+ 3-dose series) 1996 COVID-19 VACCINE ( - 2023-2 5 season) 2024 DEPRESSION SCREENING 10/01/2024 INFLUENZA VACCINE (Season Ended) 2025 ZOSTER VACCINE (1 of 2) 2027 HIB VACCINE Aged Out No longer eligi ble based on patient's age to complete this topic HPV VACCINE Aged Out No longer eligi ble based on patient's age to complete this topic MENINGOCOCCAL (Group B) VACC INE SHARED DECISION-MAKING Aged Out No longer eligibl e based on patient's age to complete this topic MENINGOCOCCAL GROUPS A/C/Y/W VACCINE Aged Out No longer eligible b ased on patient's age to complete this topic PNEUMOCOCCAL VACCINE Aged Out No long er eligible based on patient's age to complete this topic Advance Directives * FULL RESUSCITATION (Latest Code Status on File) Date Activated Date Inactivated Comments 11/04/2013 1:38 PM 11/05/2013 1:30 PM Care Teams Dinking Machine Operator Relationship Specialty Start Date End Date Valarie Muñoz MD [address] [place] [address] PCP - General 11/04/13
[2025-01-28 11:08] LABS: D Dimer 0.37 ug/mL (<0.48)
--- OUTSIDE RECORDS SUMMARY | 2025-01-28 11:44 | XMS_ITS | Clinical Summary ---
Author Organization [facility] Address [address] [facility] [place] [address] Care Team Providers Care Senior Security Analyst Name Role Phone Yg Frausto MD Primary Care Provider [phone] Allergies Active Allergy Reactions Criticality Noted Date [...] mouth daily. 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6 cm (5' 6 ) 11/15/2015 10:33 AM SECRETARY TO BOARD OF COMMISSIONERS Body Mass Index 19.21 11/15/2015 10:33 AM SECRETARY TO BOARD OF COMMISSIONERS Plan of Treatment Health Maintenance Due Date [...] Recently Relevant to Health Maintenance Care Teams Senior Security Analyst Relationship Specialty Start Date End Date Yg Frausto MD PCP - General Family Practice 05/05/14
--- OUTSIDE RECORDS SUMMARY | 2025-01-28 11:44 | XMS_ITS | Encounter Summary ---
Author Organization [facility] Address [address] [place] [address] Care Team Providers Care Sales Service Supervisor Name Role Phone Yg Frausto MD Primary Care Provider [phone] Encounter Details Date Type Department Care Team (Late st Contact Info) Description 12/18/2005 Outpatient Historical [facility] Medicine [address] [place] [phone] Satish Parish, DO [address] [facility] [place] [phone] Social History Tobacco Use Types Packs/Day Years Used Date Smoking Tobacco: Never Assessed Comments Unknown Sex and Gender Information Value Date Recorded Sex Assigned at Not on file Legal Sex Female 4:42 AM FACING BASTER Gender Identity Not on file Sexual Orientation Not on file documented as of this encounter Plan of Treatment Not on file documented as of this encounter Visit Diagnoses Not on filedocumented in this encounter Care Teams Sales Service Supervisor Relationship Specialty Start Date End Date Yg Frausto MD PCP - General Family Practice 05/05/14 documented as of this encounter
--- OUTSIDE RECORDS SUMMARY | 2025-01-28 11:44 | XMS_ITS | Encounter Summary ---
Author Organization [facility] Address [address] [place] [address] Care Team Providers Care Matzo Forming Machine Operator Name Role Phone Yg Frausto MD Primary Care Provider [phone] Encounter Details Date Type Department Care Team (Late st Contact Info) Description 04/11/2006 Outpatient Historical [facility] Medicine [address] [place] [phone] Satish Parish, DO [address] [facility] [place] [phone] Social History Tobacco Use Types Packs/Day Years Used Date Smoking Tobacco: Never Assessed Comments Unknown Sex and Gender Information Value Date Recorded Sex Assigned at Not on file Legal Sex Female 4:42 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
--- OUTSIDE RECORDS SUMMARY | 2025-01-28 11:44 | XMS_ITS | Encounter Summary ---
Author Organization [facility] Address [address] [place] [address] Care Team Providers Care Logistician Name Role Phone Yg Frausto MD Primary Care Provider [phone] Encounter Details Date Type Department Care Team (Late st Contact Info) Description 07/09/2006 Outpatient Historical [facility] Medicine [address] [place] [phone] Satish Parish, DO [address] [facility] [place] [phone] Social History Tobacco Use Types Packs/Day Years Used Date Smoking Tobacco: Never Assessed Comments Unknown Sex and Gender Information Value Date Recorded Sex Assigned at Not on file Legal Sex Female 4:42 AM SPRAY MACHINE OPERATOR Gender Identity Not on file Sexual Orientation Not on file documented as of this encounter Plan of Treatment Not on file documented as of this encounter Visit Diagnoses Not on filedocumented in this encounter Care Teams Logistician Relationship Specialty Start Date End Date Yg Frausto MD PCP - General Family Practice 05/05/14 documented as of this encounter
--- OUTSIDE RECORDS SUMMARY | 2025-01-28 11:44 | XMS_ITS | Encounter Summary ---
Author Organization [facility] Address [address] [place] [address] Care Team Providers Care Equipment Oiler Name Role Phone Yg Frausto MD Primary Care Provider [phone] Encounter Details Date Type Department Care Team (Late st Contact Info) Description 12/05/2005 Outpatient Historical [facility] Medicine [address] [place] [phone] Satish Parish, DO [address] [facility] [place] [phone] Social History Tobacco Use Types Packs/Day Years Used Date Smoking Tobacco: Never Assessed Comments Unknown Sex and Gender Information Value Date Recorded Sex Assigned at Not on file 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
--- OUTSIDE RECORDS SUMMARY | 2025-01-28 11:44 | XMS_ITS | Clinical Summary ---
Author Organization [facility] [employer] [facility] Address [address] [place] [address] Care Team Providers Care Gaggerman Name Role Phone Valarie Muñoz MD Primary Care Provider [phone] Source Comments [facility],non-owned Affiliates and Associated Physician Practices is amultiple site organization consisting of ambulatory clinics and hospital sitesin [place], [place], [place] and [place]. This disclosure is being madepursuant to the Care Everywhere program and may not contain all information available regarding this patient. Last updated 18.[facility] [employer] Allergies Active Allergy Reactions Criticality Noted Date [...] by mouth once daily. 3 TABS Active Ngcm-Eaeiaydtk-P en-Methyl Mathew (VLUG-MCXCS-OSIJ WHIT) 0.5-0.035-5-20 % PTCH by Apply externally [...] on file Legal Sex Female 2:05 PM DIRECTOR INVESTOR RELATIONS Gender Identity Not on file Sexual Orientation Not on file Last Filed Vital Signs Vital Sign Reading Time Taken Comments Blood Pressure 110/76 08/28/2018 10:09 AM DIRECTOR INVESTOR RELATIONS Pulse 88 08/28/2018 10:09 AM DIRECTOR INVESTOR RELATIONS Temperature 36.9 C (98.4 F) 08/28/2018 10:09 AM DIRECTOR INVESTOR RELATIONS Respiratory Rate 16 08/28/2018 10:09 AM DIRECTOR INVESTOR RELATIONS Oxygen Saturation 98% 08/28/2018 10:09 AM DIRECTOR INVESTOR RELATIONS Inhaled Oxygen Concentration - - Weight 63.5 kg (140 lb) 08/28/2018 10:09 AM DIRECTOR INVESTOR RELATIONS Height 167.6 cm (5' 6 ) 08/28/2018 10:09 AM DIRECTOR INVESTOR RELATIONS Body Mass Index 22.6 08/28/2018 10:09 AM DIRECTOR INVESTOR RELATIONS Plan of Treatment Health Maintenance Due Date [...] 1:38 PM 11/05/2013 1:30 PM Care Teams Gaggerman Relationship Specialty Start Date End Date Valarie Muñoz MD [address] [place] [address] PCP - General 11/04/13
--- OUTSIDE RECORDS SUMMARY | 2025-01-28 11:44 | XMS_ITS | Encounter Summary ---
Author Organization [facility] Address [address] [place] [address] Care Team Providers Care Ventilating Engineer Name Role Phone gY Frausto MD Primary Care Provider [phone] Encounter Details Date Type Department Care Team (Late st Contact Info) Description 08/26/2007 Outpatient Historical [facility] Medicine [address] [place] [phone] Satish Parish, DO [address] [facility] [place] [phone] Social History Tobacco Use Types Packs/Day Years Used Date Smoking Tobacco: Never Assessed Comments Unknown Sex and Gender Information Value Date Recorded Sex Assigned at Not on file Legal Sex Female 4:42 AM PROCESS DEVELOPMENT CHEMIST Gender Identity Not on file Sexual Orientation Not on file documented as of this encounter Plan of Treatment Not on file documented as of this encounter Visit Diagnoses Not on filedocumented in this encounter Care Teams Ventilating Engineer Relationship Specialty Start Date End Date Yg Frausto MD PCP - General Family Practice 05/05/14 documented as of this encounter
--- OUTSIDE RECORDS SUMMARY | 2025-01-28 11:44 | XMS_ITS | Encounter Summary ---
Author Organization [facility] Address [address] [place] [address] Care Team Providers Care Market Development Executive Name Role Phone Yg Frausot MD Primary Care Provider [phone] Encounter Details Date Type Department Care Team (Late st Contact Info) Description 04/04/2006 Outpatient Historical [facility] Medicine [address] [place] [phone] Satish Parish, DO [address] [facility] [place] [phone] Social History Tobacco Use Types Packs/Day Years Used Date Smoking Tobacco: Never Assessed Comments Unknown Sex and Gender Information Value Date Recorded Sex Assigned at Not on file Legal Sex Female 4:42 AM MORTGAGE LENDER Gender Identity Not on file Sexual Orientation Not on file documented as of this encounter Plan of Treatment Not on file documented as of this encounter Visit Diagnoses Not on filedocumented in this encounter Care Teams Market Development Executive Relationship Specialty Start Date End Date Yg Frausto MD PCP - General Family Practice 05/05/14 documented as of this encounter
--- OUTSIDE RECORDS SUMMARY | 2025-01-28 11:44 | XMS_ITS | Clinical Summary ---
Author Organization [facility] Address [address] [place] [address] Care Team Providers Care Optical Worker Name Role Phone Non-Staff, Provider Primary Care [...] Comments Blood Pressure 94/50 09/07/2023 12:30 PM BILINGUAL SALES REPRESENTATIVE Pulse 71 09/07/2023 12:30 PM BILINGUAL SALES REPRESENTATIVE Temperature 36.4 C (97.5 F) 09/07/2023 7:45 AM BILINGUAL SALES REPRESENTATIVE Respiratory Rate 16 09/07/2023 7:45 AM BILINGUAL SALES REPRESENTATIVE Oxygen Saturation 97% 09/07/2023 12:30 PM BILINGUAL SALES REPRESENTATIVE Inhaled Oxygen Concentration - - Weight 64.1 kg (141 lb 5 oz) 09/07/2023 7:45 AM BILINGUAL SALES REPRESENTATIVE Height 165.1 cm (5' 5 ) 09/07/2023 7:45 AM BILINGUAL SALES REPRESENTATIVE Body Mass Index 23.52 09/07/2023 7:45 AM BILINGUAL SALES REPRESENTATIVE Plan of Treatment Health Maintenance Due Date [...] patient's age to complete this topic Insurance [place] Care Teams Optical Worker Relationship Specialty Start Date End Date Non-Staff, Provider PCP - General UNKNOWN PHYSICIAN SPECIALTY 09/07/23
[2025-01-28 14:04] LABS: Troponin I < 0.012 ng/mL (0.000-0.034)
== END 2025-01-28 16:42 | disposition home or self-care (01) ==
PROVIDERS: Emergency Provider Emergency Medicine
DX: R07.9 Chest pain, unspecified (principal); G43.909 Migraine, unspecified, not intractable, without status migrainosus; E86.0 Dehydration; F41.9 Anxiety disorder, unspecified; F43.10 Post-traumatic stress disorder, unspecified; Z87.442 Personal history of urinary calculi; R94.31 Abnormal electrocardiogram [ECG] [EKG]; Z79.82 Long term (current) use of aspirin; Z79.899 Other long term (current) drug therapy
CPT/HCPCS: 36415; 71046; 80053; 83690; 84484; 85025; 85380; 85610; 85730; 93005; 96361; 96374; 96375; 99284; A9270; J1885; J2405; J7030